=== PATIENT | female | born 1960 | race African-American/Black ===

== ENCOUNTER → 2016-09-14 | Outpatient (CLI) | payer MEDICARE, OTHER ==
[~2016-09-14] MED LIST: ZOLPIDEM 5 MG TABLET. PO ONE
--- NOTE | 2016-09-15 10:04 | SLEEP ---
DATE OF STUDY: 09/14/2016 SLEEP STUDY ATTENDING PHYSICIAN: Dr. Shonda Tse. The patient is 56 years old who weighs 220 pounds with a BMI of 42. The patient has moderate subjective hypersomnia with an Zenda score of 15. Sleep study was performed to rule out MARIA DOLORES. During the night study, the patient spent 413 minutes in bed and slept for 311 minutes with a sleep efficiency of 75%. Sleep latency was 88 minutes with a REM latency of 219 minutes. Overall, sleep architecture showed normal stage I sleep, increased stage II sleep, normal N3 and reduced REM sleep. During the night study, the patient had 8 obstructive apneas, no mixed or central apneas and there were 23 hypopneas. The patient's apnea hypopnea index was 6 per hour, supine index 7 per hour and a REM index of 6 per hour. The chemistry quality control technician did note the thoracic channel dampening throughout the night. Review of nocturnal oximetry study revealed a mean oxygen saturation 96% with the lowest of 84%. 12% of time oxygen saturation remained between 80% and 89% and was predominantly during REM sleep. EKG monitoring revealed normal sinus rhythm, average heart rate was 54 beats per minute. No sustained arrhythmias were observed. PLMS were seen at index of 1 per hour and none caused EEG arousals. Due to low AHI, the patient did not meet the split night criteria for CPAP initiation. IMPRESSION: 1. Mild sleep apnea-hypopnea syndrome with an AHI of 6 per hour. 2. Nocturnal hypoxia secondary to obstructive sleep apnea. 3. No clinically significant PLMS. RECOMMENDATIONS: 1. The patient is clinically symptomatic with an Zenda score of 15. I would recommend treating the patient's sleep apnea with either oral appliance or a trial of CPAP titration. 2. If the patient pursue with CPAP titration, then she should be followed up in 4-6 weeks to assess compliance with CPAP and to document clinical improvement. 3. Weight loss is strongly advised. 4. Avoid MEDICAL BILLING SUPERVISOR depressants. 5. Caution regarding driving until symptoms of sleep apnea have resolved with the above recommendations. VIDAL CHENG MD DR: MAGDI/sahra JOB#: [id number] / [id number] SHONDA Campbell MD
== END | disposition home or self-care (01) ==
LOC: SLPLAB 18:55
PROVIDERS: ATTEND Internal Medicine Cardiovascular Disease
DX: G47.33 Obstructive sleep apnea (adult) (pediatric) (principal)
CPT/HCPCS: 95810

== ENCOUNTER 2017-03-17 10:19 | Inpatient (IN) | payer MEDICARE ==
[~2017-03-17] VITALS: Ht 154.9 cm; Wt 98.7 kg
[~2017-03-17 10:19] MED LIST changes: +APIX5TAB PO; +ASPI-612 PO; +ATOR10TA60 PO; +CITA20TA5 PO; +CLON0.1T PO; +CLOP75TA PO; +FLUT16SP NS; +FURO40TA4 PO; +HYDR-2869 PO; +INSU100C SQ; +LISI40TA PO; +MAGN64TA6 PO; +METF-620 PO; +SPIR25TA3 PO; -ZOLPIDEM 5 MG TABLET. PO ONE
[2017-03-17 10:48] LABS: BASO # 0.1 x10^3/uL (0.0-0.2); BASO % 1 % (0-3); EOS % 1 % (0-3); HEMATOCRIT 32.1 % (36.0-47.0); HEMOGLOBIN 10.5 g/dL (12.0-15.5); LYMPH # 2.6 x10^3/uL (1.0-4.8); LYMPH % 26 % (24-48); MEAN CORPUSCULAR HEMOGLOBIN 27 pg (25-35); MEAN CORPUSCULAR HGB CONC 33 g/dL (31-37); MEAN CORPUSCULAR VOLUME 82 fL (79-100); MONO % 5 % (0-9); NEUT % 67 % (31-73); PLATELET COUNT 246 x10^3/uL (140-400); RED BLOOD COUNT 3.92 x10^6/uL (3.50-5.40); RED CELL DISTRIBUTION WIDTH 15.3 % (11.5-14.5)
--- NOTE | 2017-03-17 10:50 | EKG ---
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
[2017-03-17 10:56] LABS: BILIRUBIN,URINE NEGATIVE (NEG); GLUCOSE,URINE NEGATIVE (NEG); NITRITE,URINE NEGATIVE (NEG); PROTEIN,URINE NEGATIVE (NEG-TRACE); UROBILINOGEN,URINE 0.2 mg/dL (0.2 mg/dL)
[2017-03-17 10:58] LABS: CALCIUM 9.6 mg/dL (8.5-10.1); CREATININE 0.9 mg/dL (0.6-1.0); GFR 78.1; INR 1.2 (0.8-1.1); POTASSIUM 4.1 mmol/L (3.5-5.1); PROTHROMBIN TIME PATIENT 14.2 SEC (11.7-14.0)
[2017-03-17 11:07] LABS: ALBUMIN 3.7 g/dL (3.4-5.0); ALBUMIN/GLOBULIN RATIO 0.9 (1.0-1.7); MAGNESIUM 1.7 mg/dL (1.8-2.4); TOTAL BILIRUBIN 0.7 mg/dL (0.2-1.0); TOTAL PROTEIN 7.7 g/dL (6.4-8.2)
--- NOTE | 2017-03-17 11:09 | RAD ---
Examination: Single frontal view the chest. History: History of shortness of breath Comparison: None available Findings: The cardiomediastinal silhouette grossly appears unremarkable. Probable minimal prominent appearing bilateral interstitial lung markings. Impression: Probable minimal congestive changes.
[2017-03-17 11:13] LABS: BACTERIA,URINE 0 /HPF (0-FEW); RBC,URINE 0 /HPF (0-2); SQUAMOUS EPITHELIAL CELL,UR OCC /LPF; WBC,URINE 0 /HPF (0-4)
[2017-03-17 11:34] LABS: OBC FLU VALID
--- NOTE | 2017-03-17 11:45 | RAD ---
Examination: CT head without contrast History: Headache, hypertension. Comparison: None. .. Findings: The ventricles and sulci are normal for the patient's age. No mass-effect, intracranial mass, midline shift, hemorrhage or obvious acute infarction is identified. Basilar cisterns are patent. Bone windows demonstrate no significant calvarial abnormality. The visualized paranasal sinuses appear clear. There is a tiny bone density identified in the inner table of the left frontal skull bone measuring 2.5 mm could be tiny calcification or a small meningioma Impression: 1. No acute intracranial process. 2. There is a tiny bone density identified in the inner table of the left frontal skull bone measuring 2.5 mm could be tiny calcification or a small meningioma PQRS Compliance Statement: One or more of the following individualized dose reduction techniques were utilized for this examination: 1. Automated exposure control 2. Adjustment of the mA and/or kV according to patient size 3. Use of iterative reconstruction technique faint
[2017-03-17 12:45] VITALS: BP 197/78
--- NOTE | 2017-03-17 12:47 | PHYS DOC ---
Past Medical History Past Medical History: CHF, Diabetes-Type II, Hypertension Past Surgical History: Cholecystectomy, Hysterectomy, Tonsillectomy, Other Additional Past Surgical Histo: L breast lumpectomy x 2 Alcohol Use: Occasionally Drug Use: None Adult General Chief Complaint Chief Complaint: sob, light-headed, htn, intermittent REGAN HPI HPI Patient is a 56 year old female who presents with chest pain, shortness of breath and intermittent headaches. Patient states that shortness of breath started after she was cleaning her of them with an ammonia diamond cleaner on Wednesday. It is been persistent and worsening in nature, mild cough, increased orthopnea and exertional dyspnea. Patient does have a history of CHF, states that her edema in her lower extremities is improved from today. She's been taking all her medications as directed, noting that her blood pressure at significantly been increasing. She contacted her cardiology office and they increased her hydralazine from 25-50 per dose, she has been taking this increased dose. She developed a headache yesterday there is been persistent, denies any slurred speech, no focal weakness. Patient reports she took her blood pressure medication today, it is significantly elevated upon arrival. Pt plans to have thyroid study performed, came to "take the pill" and noted to have accelerated htn, instructed to come to ED Review of Systems Review of Systems Constitutional: Denies fever or chills [] Eyes: Denies change in visual acuity, redness, or eye pain [] HENT: Denies nasal congestion or sore throat [] Respiratory: Per history of present illness Cardiovascular: No additional information not addressed in HPI [] GI: Denies abdominal pain, nausea, vomiting, bloody stools or diarrhea [] : Denies dysuria or hematuria [] Musculoskeletal: Denies back pain or joint pain [] Integument: Denies rash or skin lesions [] Neurologic:reports headache, denies focal weakness or sensory changes [] Allergies Allergies Allergies Coded Allergies Type Severity Reaction Last Updated Verified No Known Drug Allergies 03/17/17 No Physical Exam Physical Exam Constitutional: Well developed, well nourished, no acute distress, non-toxic appearance. [] HENT: Normocephalic, atraumatic, bilateral external ears normal, oropharynx moist, no oral exudates, nose normal. [] Eyes: PERRLA, EOMI, conjunctiva normal, no discharge. [] Neck: Normal range of motion, no tenderness, supple, no stridor. [] Cardiovascular:Heart rate regular rhythm Lungs & Thorax: Bilateral breath sounds , poor to moderate air movement, faint lower lobe crackles Abdomen: Bowel sounds normal, soft, no tenderness, no masses, no pulsatile masses. [] Skin: Warm, dry, no erythema, no rash. [] Back: No tenderness, no CVA tenderness. [] Extremities: No tenderness, no cyanosis, no clubbing, ROM intact,trace bilateral LE edema Neurologic: Alert and oriented X 3, normal motor function, normal sensory function, no focal deficits noted. [] Psychologic: Affect normal, judgement normal, mood normal. [] Current Patient Data Vital Signs Vital Signs Date Time Temp Pulse Resp B/P (MAP) Pulse Ox O2 Delivery O2 Flow Rate FiO2 03/17/17 11:30 54 28 97 03/17/17 10:25 97.9 229/96 (140) Room Air 97.9 Lab Values Laboratory Tests Test 03/17/17 10:40 03/17/17 10:45 03/17/17 11:10 White Blood Count 10.0 x10^3/uL (4.0-11.0) Red Blood Count 3.92 x10^6/uL (3.50-5.40) Hemoglobin 10.5 g/dL (12.0-15.5) L Hematocrit 32.1 % (36.0-47.0) L Mean Corpuscular Volume 82 fL (79-100) Mean Corpuscular Hemoglobin 27 pg (25-35) Mean Corpuscular Hemoglobin Concent 33 g/dL (31-37) Red Cell Distribution Width 15.3 % (11.5-14.5) H Platelet Count 246 x10^3/uL (140-400) Neutrophils (%) (Auto) 67 % (31-73) Lymphocytes (%) (Auto) 26 % (24-48) Monocytes (%) (Auto) 5 % (0-9) Eosinophils (%) (Auto) 1 % (0-3) Basophils (%) (Auto) 1 % (0-3) Neutrophils # (Auto) 6.7 x10^3uL (1.8-7.7) Lymphocytes # (Auto) 2.6 x10^3/uL (1.0-4.8) Monocytes # (Auto) 0.5 x10^3/uL (0.0-1.1) Eosinophils # (Auto) 0.1 x10^3/uL (0.0-0.7) Basophils # (Auto) 0.1 x10^3/uL (0.0-0.2) Prothrombin Time 14.2 SEC (11.7-14.0) H Prothrombin Time INR 1.2 (0.8-1.1) H Sodium Level 139 mmol/L (136-145) Potassium Level 4.1 mmol/L (3.5-5.1) Chloride Level 101 mmol/L (98-107) Carbon Dioxide Level 27 mmol/L (21-32) Anion Gap 11 (6-14) Blood Urea Nitrogen 12 mg/dL (7-20) Creatinine 0.9 mg/dL (0.6-1.0) Estimated GFR (Cockcroft-Gault) 78.1 BUN/Creatinine Ratio 13 (6-20) Glucose Level 148 mg/dL (70-99) H Calcium Level 9.6 mg/dL (8.5-10.1) Magnesium Level 1.7 mg/dL (1.8-2.4) L Total Bilirubin 0.7 mg/dL (0.2-1.0) Aspartate Amino Transferase (AST) 22 U/L (15-37) Alanine Aminotransferase (ALT) 33 U/L (14-59) Alkaline Phosphatase 98 U/L (46-116) Troponin I Quantitative 0.027 ng/mL (0.000-0.055) NN-Sgd-A-Type Natriuretic Peptide 2015 pg/mL (0-124) H Total Protein 7.7 g/dL (6.4-8.2) Albumin 3.7 g/dL (3.4-5.0) Albumin/Globulin Ratio 0.9 (1.0-1.7) L Urine Collection Type Unknown Urine Color Yellow Urine Clarity Clear Urine pH 6.0 Urine Specific [place] <=1.005 Urine Protein Negative mg/dL (NEG-TRACE) Urine Glucose (UA) Negative mg/dL (NEG) Urine Ketones (Stick) Negative mg/dL (NEG) Urine Blood Negative (NEG) Urine Nitrite Negative (NEG) Urine Bilirubin Negative (NEG) Urine Urobilinogen Dipstick 0.2 mg/dL (0.2 mg/dL) Urine Leukocyte Esterase Negative (NEG) Urine RBC 0 /HPF (0-2) Urine WBC 0 /HPF (0-4) Urine Squamous Epithelial Cells Occ /LPF Urine Bacteria 0 /HPF (0-FEW) Urine Opiates Screen Neg (NEG) Urine Methadone Screen Neg (NEG) Urine Barbiturates Neg (NEG) Urine Phencyclidine Screen Neg (NEG) Urine Amphetamine/Methamphetamine Neg (NEG) Urine Benzodiazepines Screen Neg (NEG) Urine Cocaine Screen Neg (NEG) Urine Cannabinoids Screen Neg (NEG) Urine Ethyl Alcohol Neg (NEG) Influenza Type A Antigen Negative (NEGATIVE) Influenza Type B Antigen Negative (NEGATIVE) Laboratory Tests 03/17/17 10:40 Laboratory Tests 03/17/17 10:40 EKG EKG 1031: 55 bpm, appears sinus, normal axis, QTC of 460, no appreciable ST elevation or depression, nonischemic T waves, wandering baseline does make it challenging to interpret, interpreted by me[] Radiology/Procedures Radiology/Procedures CXR: Impression: Probable minimal congestive changes. CT head: Impression: 1. No acute intracranial process. 2. There is a tiny bone density identified in the inner table of the left frontal skull bone measuring 2.5 mm could be tiny calcification or a small meningioma Course & Med Decision Making Course & Med Decision Making Pertinent Labs and Imaging studies reviewed. (See chart for details) Pt with accelerated htn, sob. Pt given IV lasix, contacted cardiology, recommends admission. Dr. Gonzalez accepted, pt agreeable. Dragon Disclaimer Dragon Disclaimer This electronic medical record was generated, in whole or in part, using a voice recognition dictation system. Departure Departure Impression: Primary Impression: Accelerated hypertension Additional Impression: Acute on chronic systolic (congestive) heart failure Disposition: 09 ADMITTED INPATIENT Admitting Physician: Other Condition: STABLE Referrals: SHONDA PHOENIX MD (PCP) Problem Qualifiers DOMINGUEZ CRISTOBAL MD Mar 17, 2017 12:47
[2017-03-17] MEDS ORDERED: FUROSEMIDE 40 MG/4 ML VIAL. IVP ONE (13:15)
--- NOTE | 2017-03-17 13:25 | PDOC1 ---
History and Physical Date of Admission Date of Admission 03/17/17 Identification/Chief Complaint Chief Complaint chest pain Problems: Source Source: Patient History of Present Illness History of Present Illness 56 year old AAF came in complaining of headache and chest pain since Wednesday. Patient was cleaning her kitchen when she felt dizzy and having headaches she checked her blood pressure and found to have systolic blood pressure in the 200s. Patient increased her dose of hydralazine and was still taking all her medications. Patient came to [facility] to do a Thyroid uptake scan and she didn 't feel good her blood pressure was still elevated and was told to come to the ER. Patient's blood pressure was still in the systolic 200s and she was given a dose of Lasix in the ER. Patient denies any fever, chills, nausea, vomiting. Past Medical History Cardiovascular: CAD, HTN Endocrine: Diabetes Past Surgical History Past Surgical History cardiac catherization Social History Smoke: No ALCOHOL: none Current Problem List Problem List Problems Medical Problems: (1) Accelerated hypertension Status: Acute Current Medications Current Medications Current Medications Medications (Trade) Dose Ordered Sig/Jose Elias Start Time Stop Time Status Last Admin Dose Admin Apixaban (Eliquis) 5 mg BID 03/17/17 13:30 Aspirin (Ecotrin) 81 mg DAILY 03/17/17 13:30 Atorvastatin Calcium (Lipitor) 10 mg QHS 03/17/17 21:00 Citalopram Hydrobromide (CeleXA) 20 mg DAILY 03/17/17 13:30 Clonidine HCl (Catapres) 0.1 mg QHS 03/17/17 21:00 Clopidogrel Bisulfate (Plavix) 75 mg DAILY 03/17/17 13:30 Fluticasone Propionate (Flonase) 2 spray DAILY 03/17/17 13:30 Furosemide (Lasix) 40 mg DAILY 03/18/17 09:00 Hydralazine HCl (Apresoline) 50 mg BID 03/17/17 13:30 Lisinopril (Prinivil) 40 mg BID 03/17/17 13:30 Metformin HCl (Glucophage) 1,000 mg [id number] 03/17/17 13:30 Spironolactone (Aldactone) 25 mg DAILY 03/17/17 13:30 Allergies Allergies Allergies Coded Allergies Type Severity Reaction Last Updated Verified No Known Drug Allergies 03/17/17 No ROS Review of System CONSTITUTIONAL: No fever or chills EYES: No recent changes SKIN: No rash or itching CARDIOVASCULAR: +chest pain RESPIRATORY: No SOB or cough GASTROINTESTINAL: No nausea, vomiting or abdominal pain NEUROLOGICAL: No headaches or weakness ENDOCRINE: No cold or heat intolerance GENITOURINARY: No urgency or frequency of urination MUSCULOSKELETAL: No back pain or joint pain LYMPHATICS: No enlarged lymph nodes PSYCHIATRIC: No anxiety or depression Physical Exam Physical Exam GEN.: No apparent distress. Alert and oriented. HEENT: Head is normocephalic, atraumatic NECK: Supple. LUNGS: Clear to auscultation. HEART: RRR, S1, S2 present. Peripheral pulses intact ABDOMEN: Soft, nontender. Positive bowel sounds. EXTREMITIES: Without any cyanosis. NEUROLOGIC: Normal speech, normal tone PSYCHIATRIC: Normal affect, normal mood. SKIN: No ulcerations Vitals Vitals Vital Signs Date Time Temp Pulse Resp B/P (MAP) Pulse Ox O2 Delivery O2 Flow Rate FiO2 03/17/17 12:20 54 28 97 03/17/17 10:25 97.9 229/96 (140) Room Air 97.9 Labs Labs Laboratory Tests Test 03/17/17 10:40 03/17/17 10:45 03/17/17 11:10 03/17/17 12:56 White Blood Count 10.0 x10^3/uL (4.0-11.0) Red Blood Count 3.92 x10^6/uL (3.50-5.40) Hemoglobin 10.5 g/dL (12.0-15.5) Hematocrit 32.1 % (36.0-47.0) Mean Corpuscular Volume 82 fL (79-100) Mean Corpuscular Hemoglobin 27 pg (25-35) Mean Corpuscular Hemoglobin Concent 33 g/dL (31-37) Red Cell Distribution Width 15.3 % (11.5-14.5) Platelet Count 246 x10^3/uL (140-400) Neutrophils (%) (Auto) 67 % (31-73) Lymphocytes (%) (Auto) 26 % (24-48) Monocytes (%) (Auto) 5 % (0-9) Eosinophils (%) (Auto) 1 % (0-3) Basophils (%) (Auto) 1 % (0-3) Neutrophils # (Auto) 6.7 x10^3uL (1.8-7.7) Lymphocytes # (Auto) 2.6 x10^3/uL (1.0-4.8) Monocytes # (Auto) 0.5 x10^3/uL (0.0-1.1) Eosinophils # (Auto) 0.1 x10^3/uL (0.0-0.7) Basophils # (Auto) 0.1 x10^3/uL (0.0-0.2) Prothrombin Time 14.2 SEC (11.7-14.0) Prothromb Time International Ratio 1.2 (0.8-1.1) Sodium Level 139 mmol/L (136-145) Potassium Level 4.1 mmol/L (3.5-5.1) Chloride Level 101 mmol/L (98-107) Carbon Dioxide Level 27 mmol/L (21-32) Anion Gap 11 (6-14) Blood Urea Nitrogen 12 mg/dL (7-20) Creatinine 0.9 mg/dL (0.6-1.0) Estimated GFR (Cockcroft-Gault) 78.1 BUN/Creatinine Ratio 13 (6-20) Glucose Level 148 mg/dL (70-99) Calcium Level 9.6 mg/dL (8.5-10.1) Magnesium Level 1.7 mg/dL (1.8-2.4) Total Bilirubin 0.7 mg/dL (0.2-1.0) Aspartate Amino Transf (AST/SGOT) 22 U/L (15-37) Alanine Aminotransferase (ALT/SGPT) 33 U/L (14-59) Alkaline Phosphatase 98 U/L (46-116) Troponin I Quantitative 0.027 ng/mL (0.000-0.055) BC-Qyx-Q-Type Natriuretic Peptide 2015 pg/mL (0-124) Total Protein 7.7 g/dL (6.4-8.2) Albumin 3.7 g/dL (3.4-5.0) Albumin/Globulin Ratio 0.9 (1.0-1.7) Urine Collection Type Unknown Urine Color Yellow Urine Clarity Clear Urine pH 6.0 Urine Specific [place] <=1.005 Urine Protein Negative mg/dL (NEG-TRACE) Urine Glucose (UA) Negative mg/dL (NEG) Urine Ketones (Stick) Negative mg/dL (NEG) Urine Blood Negative (NEG) Urine Nitrite Negative (NEG) Urine Bilirubin Negative (NEG) Urine Urobilinogen Dipstick 0.2 mg/dL (0.2 mg/dL) Urine Leukocyte Esterase Negative (NEG) Urine RBC 0 /HPF (0-2) Urine WBC 0 /HPF (0-4) Urine Squamous Epithelial Cells Occ /LPF Urine Bacteria 0 /HPF (0-FEW) Influenza Type A Antigen Negative (NEGATIVE) Influenza Type B Antigen Negative (NEGATIVE) Glucose (Fingerstick) 143 mg/dL (70-99) Laboratory Tests Test 03/17/17 10:40 03/17/17 10:45 03/17/17 11:10 03/17/17 12:56 White Blood Count 10.0 x10^3/uL (4.0-11.0) Red Blood Count 3.92 x10^6/uL (3.50-5.40) Hemoglobin 10.5 g/dL (12.0-15.5) Hematocrit 32.1 % (36.0-47.0) Mean Corpuscular Volume 82 fL (79-100) Mean Corpuscular Hemoglobin 27 pg (25-35) Mean Corpuscular Hemoglobin Concent 33 g/dL (31-37) Red Cell Distribution Width 15.3 % (11.5-14.5) Platelet Count 246 x10^3/uL (140-400) Neutrophils (%) (Auto) 67 % (31-73) Lymphocytes (%) (Auto) 26 % (24-48) Monocytes (%) (Auto) 5 % (0-9) Eosinophils (%) (Auto) 1 % (0-3) Basophils (%) (Auto) 1 % (0-3) Neutrophils # (Auto) 6.7 x10^3uL (1.8-7.7) Lymphocytes # (Auto) 2.6 x10^3/uL (1.0-4.8) Monocytes # (Auto) 0.5 x10^3/uL (0.0-1.1) Eosinophils # (Auto) 0.1 x10^3/uL (0.0-0.7) Basophils # (Auto) 0.1 x10^3/uL (0.0-0.2) Prothrombin Time 14.2 SEC (11.7-14.0) Prothromb Time International Ratio 1.2 (0.8-1.1) Sodium Level 139 mmol/L (136-145) Potassium Level 4.1 mmol/L (3.5-5.1) Chloride Level 101 mmol/L (98-107) Carbon Dioxide Level 27 mmol/L (21-32) Anion Gap 11 (6-14) Blood Urea Nitrogen 12 mg/dL (7-20) Creatinine 0.9 mg/dL (0.6-1.0) Estimated GFR (Cockcroft-Gault) 78.1 BUN/Creatinine Ratio 13 (6-20) Glucose Level 148 mg/dL (70-99) Calcium Level 9.6 mg/dL (8.5-10.1) Magnesium Level 1.7 mg/dL (1.8-2.4) Total Bilirubin 0.7 mg/dL (0.2-1.0) Aspartate Amino Transf (AST/SGOT) 22 U/L (15-37) Alanine Aminotransferase (ALT/SGPT) 33 U/L (14-59) Alkaline Phosphatase 98 U/L (46-116) Troponin I Quantitative 0.027 ng/mL (0.000-0.055) CY-Yyr-N-Type Natriuretic Peptide 2015 pg/mL (0-124) Total Protein 7.7 g/dL (6.4-8.2) Albumin 3.7 g/dL (3.4-5.0) Albumin/Globulin Ratio 0.9 (1.0-1.7) Urine Collection Type Unknown Urine Color Yellow Urine Clarity Clear Urine pH 6.0 Urine Specific [place] <=1.005 Urine Protein Negative mg/dL (NEG-TRACE) Urine Glucose (UA) Negative mg/dL (NEG) Urine Ketones (Stick) Negative mg/dL (NEG) Urine Blood Negative (NEG) Urine Nitrite Negative (NEG) Urine Bilirubin Negative (NEG) Urine Urobilinogen Dipstick 0.2 mg/dL (0.2 mg/dL) Urine Leukocyte Esterase Negative (NEG) Urine RBC 0 /HPF (0-2) Urine WBC 0 /HPF (0-4) Urine Squamous Epithelial Cells Occ /LPF Urine Bacteria 0 /HPF (0-FEW) Influenza Type A Antigen Negative (NEGATIVE) Influenza Type B Antigen Negative (NEGATIVE) Glucose (Fingerstick) 143 mg/dL (70-99) Images Images CT heat w/o contrast Findings: The ventricles and sulci are normal for the patient's age. No mass-effect, intracranial mass, midline shift, hemorrhage or obvious acute infarction is identified. Basilar cisterns are patent. Bone windows demonstrate no significant calvarial abnormality. The visualized paranasal sinuses appear clear. There is a tiny bone density identified in the inner table of the left frontal skull bone measuring 2.5 mm could be tiny calcification or a small meningioma Impression: 1. No acute intracranial process. 2. There is a tiny bone density identified in the inner table of the left frontal skull bone measuring 2.5 mm could be tiny calcification or a small meningioma VTE Prophylaxis Ordered VTE Prophylaxis Devices: Yes VTE Pharmacological Prophylaxi: Yes Assessment/Plan Assessment/Plan ~ Hypertensive Urgency ~ CAD ~ DM II ~ Hx of Right SFA dissection/stenosis ~ PVD ~ HLD- statin Plan: Continue with home BP medications, cardiology consulted, will consult renal for other BP recommendations patient has been compliant with her medications Continue with Plavix, asa, eliquis for now accuchecks, metformin STELLA PARMAR MD Mar 17, 2017 13:25
[2017-03-17] MEDS: CITALOPRAM 20 MG TABLET. PO SCH (13:30)
[2017-03-17] MEDS: CLOPIDOGREL BISULFATE 75 MG TABLET PO SCH (13:30)
[2017-03-17] MEDS: SPIRONOLACTONE 25 MG TABLET PO SCH (13:30)
[2017-03-17] MEDS: APIXABAN 5 MG TABLET. PO SCH ×2 (13:30→20:29)
[2017-03-17] MEDS: LISINOPRIL 40 MG TABLET. PO SCH ×2 (13:30→20:28)
[2017-03-17] MEDS: ASPIRIN ENTERIC COATED 81 MG TABLET.DR. PO SCH (13:30)
--- NOTE | 2017-03-17 13:57 | PDOC2 ---
JENA PERALES HAT BRAIDER 03/17/17 1357: CARDIAC CONSULT DATE OF CONSULT Date of Consult DATE: 03/17/17 TIME: 13:50 REASON FOR CONSULT Reason for Consult: CHF Hypertension REFERRING PHYSICIAN Referring Physician: Dr. Ley SOURCE Source: Chart review, Patient HISTORY OF PRESENT ILLNESS HISTORY OF PRESENT ILLNESS This is a 56 female who presented with complaints of shortness of breath and hypertension. 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 Began feeling dizzy and feeling slightly short of breath. Developed REGAN. Wasn't feeling well Wednesday. Noted BP to be significantly elevated with SBP >200. BP continued to be significantly elevated early this week. Call PCP, who recommended that she increase her hydralazine to TID. BP continue to be significantly elevated. Was at [place] today for a thyroid uptake scan. BP noted to be elevated and she was referred to the ED. SBP> 200 upon arrival- no antiHTN therapy administered. CXR noted with minimal congestive changes- IV lasix administered. BP returned to normal range despite no additional hypertension therapy. Presently 134/60. 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 PHYSICAL EXAM General: Alert, Oriented X3, Cooperative, No acute distress HEENT: Atraumatic, Mucous membr. moist/pink Lungs: Clear to auscultation, Other (faint bibasilar crackles) Heart: Regular rate, Normal S1, Normal S2, No murmurs Abdomen: Soft, No tenderness Extremities: No edema, Normal pulses Skin: No significant lesion Neuro: Normal speech, Sensation intact Psych/Mental Status: Mental status NL, Mood NL MUSCULOSKELETAL: No joint tenderness VITALS VITALS Vital Signs Date Time Temp Pulse Resp B/P (MAP) Pulse Ox O2 Delivery O2 Flow Rate FiO2 03/17/17 12:20 54 28 97 03/17/17 10:25 97.9 229/96 (140) Room Air 97.9 LABS Lab: Laboratory Tests Test 03/17/17 10:40 03/17/17 10:45 03/17/17 11:10 12/6/17 12:56 White Blood Count 10.0 x10^3/uL (4.0-11.0) Red Blood Count 3.92 x10^6/uL (3.50-5.40) Hemoglobin 10.5 g/dL (12.0-15.5) Hematocrit 32.1 % (36.0-47.0) Mean Corpuscular Volume 82 fL (79-100) Mean Corpuscular Hemoglobin 27 pg (25-35) Mean Corpuscular Hemoglobin Concent 33 g/dL (31-37) Red Cell Distribution Width 15.3 % (11.5-14.5) Platelet Count 246 x10^3/uL (140-400) Neutrophils (%) (Auto) 67 % (31-73) Lymphocytes (%) (Auto) 26 % (24-48) Monocytes (%) (Auto) 5 % (0-9) Eosinophils (%) (Auto) 1 % (0-3) Basophils (%) (Auto) 1 % (0-3) Neutrophils # (Auto) 6.7 x10^3uL (1.8-7.7) Lymphocytes # (Auto) 2.6 x10^3/uL (1.0-4.8) Monocytes # (Auto) 0.5 x10^3/uL (0.0-1.1) Eosinophils # (Auto) 0.1 x10^3/uL (0.0-0.7) Basophils # (Auto) 0.1 x10^3/uL (0.0-0.2) Prothrombin Time 14.2 SEC (11.7-14.0) Prothromb Time International Ratio 1.2 (0.8-1.1) Sodium Level 139 mmol/L (136-145) Potassium Level 4.1 mmol/L (3.5-5.1) Chloride Level 101 mmol/L (98-107) Carbon Dioxide Level 27 mmol/L (21-32) Anion Gap 11 (6-14) Blood Urea Nitrogen 12 mg/dL (7-20) Creatinine 0.9 mg/dL (0.6-1.0) Estimated GFR (Cockcroft-Gault) 78.1 BUN/Creatinine Ratio 13 (6-20) Glucose Level 148 mg/dL (70-99) Calcium Level 9.6 mg/dL (8.5-10.1) Magnesium Level 1.7 mg/dL (1.8-2.4) Total Bilirubin 0.7 mg/dL (0.2-1.0) Aspartate Amino Transf (AST/SGOT) 22 U/L (15-37) Alanine Aminotransferase (ALT/SGPT) 33 U/L (14-59) Alkaline Phosphatase 98 U/L (46-116) Troponin I Quantitative 0.027 ng/mL (0.000-0.055) FV-Nef-A-Type Natriuretic Peptide 2015 pg/mL (0-124) Total Protein 7.7 g/dL (6.4-8.2) Albumin 3.7 g/dL (3.4-5.0) Albumin/Globulin Ratio 0.9 (1.0-1.7) Urine Collection Type Unknown Urine Color Yellow Urine Clarity Clear Urine pH 6.0 Urine Specific [place] <=1.005 Urine Protein Negative mg/dL (NEG-TRACE) Urine Glucose (UA) Negative mg/dL (NEG) Urine Ketones (Stick) Negative mg/dL (NEG) Urine Blood Negative (NEG) Urine Nitrite Negative (NEG) Urine Bilirubin Negative (NEG) Urine Urobilinogen Dipstick 0.2 mg/dL (0.2 mg/dL) Urine Leukocyte Esterase Negative (NEG) Urine RBC 0 /HPF (0-2) Urine WBC 0 /HPF (0-4) Urine Squamous Epithelial Cells Occ /LPF Urine Bacteria 0 /HPF (0-FEW) Influenza Type A Antigen Negative (NEGATIVE) Influenza Type B Antigen Negative (NEGATIVE) Glucose (Fingerstick) 143 mg/dL (70-99) ECHOCARDIOGRAM ECHOCARDIOGRAM <Conclusion> The left ventricle is normal size. Left ventricle systolic function is normal. The Ejection Fraction is 50-55%. There is mild concentric left ventricular hypertrophy. There is no significant aortic valvular stenosis. Doppler and Color Flow revealed no significant aortic regurgitation. Doppler and Color Flow revealed trace mitral regurgitation. Doppler and Color Flow revealed mild tricuspid regurgitation. The PA pressure was estimated at 33 mmHg. DATE: 07/08/16 1440 STRESS TEST STRESS TEST Conclusion 1. Non-diagnostic stress EKG. 2. Large anterior/lateral perfusion defect suggestive of prior infarct. May be due to artifact related to LVH. 3. Normal wall motion. EF > 60% 4. Moderate risk study Recommendations Given degree of abnormality, along with mild transient ischemia dilation, would consider cardiac catheterization. DATE: 01/27/17 1711 HEART CATH HEART CATH Conclusion 1. No significant coronary artery disease 2. Normal left ventricle systolic function with ejection fraction estimated at 75-80%. Recommendations Cardiac Risk Reduction Program DATE: 02/01/17 1551 ASSESSMENT/PLAN ASSESSMENT/PLAN 1. Malignant hypertension 2. Mild acute diastolic HF; LVEF 50-55% 3. Dyslipidemia 4. Diabetes 5. H/o RCFA dissection treated with MEASUREMENT ADVISOR and anticoagulation Recommendations Resume home antiHTN therapy. Increase hydralazine to TID Monitor to assess need for therapy titration Assess need for further diuresis in am Continue DAPT with Eliquis and Plavix. Vascular surgery appointment next week. Supportive care. Problems: ROSEMARY PIZARRO MD 03/17/17 1825: CARDIAC CONSULT ALLERGIES ALLERGIES: Coded Allergies: No Known Drug Allergies (Unverified , 03/17/17) ASSESSMENT/PLAN ASSESSMENT/PLAN Pt. seen and examined. Appreciate nephrology input. Supportive care. Would like to avoid repeat cath given her R groin dissection from her previous cath. Will follow along. reviewed prior records, did not find evidence of urine VMA's etc. Will consider 24 hour urine collection and rule out secondary causes. Thanks Problems: JENA PERALES APRN Mar 17, 2017 13:57 ROSEMARY PIZARRO MD Mar 17, 2017 18:25
[2017-03-17] MEDS ORDERED: MAGNESIUM SULFATE 2GM 50 ML IV PRN (14:30)
--- NOTE | 2017-03-17 14:39 | PDOC2 ---
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) Endocrine: Diabetes Past Surgical History Past Surgical History: Cholecystectomy, Hysterectomy Family History Family History: Diabetes, Hypertension Social History No ALCOHOL: none Lives: Alone Current Problem List Problem List Problems Medical Problems: (1) Accelerated hypertension Status: Acute Current Medications Current Medications Current Medications Furosemide (Lasix) 40 mg 1X ONCE IVP Last administered on 03/17/17t 14:10; Start 03/17/17 at 13:15; Stop 03/17/17 at 13:16; Status DC Apixaban (Eliquis) 5 mg BID PO ; Start 03/17/17 at 13:30 Aspirin (Ecotrin) 81 mg DAILY PO ; Start 03/17/17 at 13:30 Atorvastatin Calcium (Lipitor) 10 mg QHS PO ; Start 03/17/17 at 21:00 Citalopram Hydrobromide (CeleXA) 20 mg DAILY PO ; Start 03/17/17 at 13:30 Clonidine HCl (Catapres) 0.1 mg QHS PO ; Start 03/17/17 at 21:00 Clopidogrel Bisulfate (Plavix) 75 mg DAILY PO ; Start 03/17/17 at 13:30 Fluticasone Propionate (Flonase) 2 spray DAILY NS ; Start 03/17/17 at 13:30 Furosemide (Lasix) 40 mg DAILY PO ; Start 03/18/17 at 09:00 Hydralazine HCl (Apresoline) 50 mg BID PO ; Start 03/17/17 at 13:30 Lisinopril (Prinivil) 40 mg BID PO ; Start 03/17/17 at 13:30 Metformin HCl (Glucophage) 1,000 mg DAILYWBKFT PO ; Start 03/17/17 at 13:30 Spironolactone (Aldactone) 25 mg DAILY PO ; Start 03/17/17 at 13:30 Info (Anti-Coagulation Monitoring By Pharmacy) 1 each PRN DAILY PRN MC SEE COMMENTS; Start 03/17/17 at 13:15 Active Scripts Active Eliquis (Apixaban) 5 Mg Tablet 5 Mg PO BID 30 Days Aspirin Ec (Aspirin) 81 Mg Tablet.dr 1 Tab PO DAILY Clopidogrel (Clopidogrel Bisulfate) 75 Mg Tablet 1 Tab PO DAILY Reported Humalog (Insulin Lispro) 100 Unit/1 Ml Cartridge 100 Unit SQ Clonidine Hcl 0.1 Mg Tablet 1 Tab PO QHS 2 at hs. 1 at am Spironolactone 25 Mg Tablet 1 Tab PO DAILY Fluticasone Propionate Nasal [place] (Fluticasone Propionate) 16 Gm [place].susp 2 [place] NS DAILY Mag64 (Magnesium Chloride) 64 Mg Tablet.er 64 Mg PO Lisinopril 40 Mg Tablet 1 Tab PO BID Metformin Hcl 1,000 Mg Tablet 1,000 Mg PO DAILYWBKFT Atorvastatin Calcium 10 Mg Tablet 1 Tab PO DAILY Furosemide 40 Mg Tablet 1 Tab PO DAILY Citalopram Hbr (Citalopram Hydrobromide) 20 Mg Tablet 1 Tab PO DAILY Hydralazine Hcl 50 Mg Tablet 1 Tab PO BID Allergies Allergies: Coded Allergies: No Known Drug Allergies (Unverified , 03/17/17) ROS Review of System GEN: no Fevers no Chills EYES: ? Visual Complaints ENT: no EN Drainage no Hearing deficiets CVS: no Orthopnea no CP RESP: + SOB no MENDES GI: no Nausea no Vomiting : no Dysuria no Urgency HEME: no easy bruising no Palp Ly Nodes NEURO no Focal Weakness no Sz + REGAN with ^ed BP PSYCH: no Suicidal Ideation no Depression SKIN: no Rashes ENDO: no Polyuria or Polydipsia no Hot/Cold Intolerance MU SK: min Arthraigia no Myalgia Physical Exam Physical Exam General Appearance: Awake Alert Oriented x 3 In no Distress Eyes: VIsion Unchanged Conjunctiva Normal EN: No EN Drainage Mucous Memb. moist Neck: no JVD no JVP Supple no Thyromegaly - short thick neck CVS: S1 S2 ? Murmur No Gallop No Rub no Edema Resp: no Rales no Rhonchi no Acc. Muscle use GI: BAS +ve NO Bruit Non Tender Non Distended - no Burits, Obese abd : no CVA tenderness; no Suprapubic Tenderness SKIN: no Rashes Breast Exam deferred Mu.Sk: Adequate ROM no Muscle Atrophy Heme: Unable to palpate Obvious LAD no Splenomegaly NEURO: Good Strength and Tone Cranial Nerves II - XII grossly intact Psych: not Depressed no Active hallucination Vital Signs Vital Signs Date Time Temp Pulse Resp B/P (MAP) Pulse Ox O2 Delivery O2 Flow Rate FiO2 03/17/17 13:30 80 134/60 03/17/17 12:20 28 97 03/17/17 10:25 97.9 Room Air 97.9 Assessment & Plan Malignant HTN - sudden accel with Subj SOB - unclear etio. Check CTA for TE; Duplex done previously was -ve as reported. Dr Calles reports VMAs etch checked int he past and are -ve Labs Labs Laboratory Tests Test 03/17/17 10:40 03/17/17 10:45 03/17/17 11:10 03/17/17 12:56 White Blood Count 10.0 x10^3/uL (4.0-11.0) Red Blood Count 3.92 x10^6/uL (3.50-5.40) Hemoglobin 10.5 g/dL (12.0-15.5) Hematocrit 32.1 % (36.0-47.0) Mean Corpuscular Volume 82 fL (79-100) Mean Corpuscular Hemoglobin 27 pg (25-35) Mean Corpuscular Hemoglobin Concent 33 g/dL (31-37) Red Cell Distribution Width 15.3 % (11.5-14.5) Platelet Count 246 x10^3/uL (140-400) Neutrophils (%) (Auto) 67 % (31-73) Lymphocytes (%) (Auto) 26 % (24-48) Monocytes (%) (Auto) 5 % (0-9) Eosinophils (%) (Auto) 1 % (0-3) Basophils (%) (Auto) 1 % (0-3) Neutrophils # (Auto) 6.7 x10^3uL (1.8-7.7) Lymphocytes # (Auto) 2.6 x10^3/uL (1.0-4.8) Monocytes # (Auto) 0.5 x10^3/uL (0.0-1.1) Eosinophils # (Auto) 0.1 x10^3/uL (0.0-0.7) Basophils # (Auto) 0.1 x10^3/uL (0.0-0.2) Prothrombin Time 14.2 SEC (11.7-14.0) Prothromb Time International Ratio 1.2 (0.8-1.1) Sodium Level 139 mmol/L (136-145) Potassium Level 4.1 mmol/L (3.5-5.1) Chloride Level 101 mmol/L (98-107) Carbon Dioxide Level 27 mmol/L (21-32) Anion Gap 11 (6-14) Blood Urea Nitrogen 12 mg/dL (7-20) Creatinine 0.9 mg/dL (0.6-1.0) Estimated GFR (Cockcroft-Gault) 78.1 BUN/Creatinine Ratio 13 (6-20) Glucose Level 148 mg/dL (70-99) Calcium Level 9.6 mg/dL (8.5-10.1) Magnesium Level 1.7 mg/dL (1.8-2.4) Total Bilirubin 0.7 mg/dL (0.2-1.0) Aspartate Amino Transf (AST/SGOT) 22 U/L (15-37) Alanine Aminotransferase (ALT/SGPT) 33 U/L (14-59) Alkaline Phosphatase 98 U/L (46-116) Troponin I Quantitative 0.027 ng/mL (0.000-0.055) SK-Vrj-H-Type Natriuretic Peptide 2015 pg/mL (0-124) Total Protein 7.7 g/dL (6.4-8.2) Albumin 3.7 g/dL (3.4-5.0) Albumin/Globulin Ratio 0.9 (1.0-1.7) Urine Collection Type Unknown Urine Color Yellow Urine Clarity Clear Urine pH 6.0 Urine Specific [place] <=1.005 Urine Protein Negative mg/dL (NEG-TRACE) Urine Glucose (UA) Negative mg/dL (NEG) Urine Ketones (Stick) Negative mg/dL (NEG) Urine Blood Negative (NEG) Urine Nitrite Negative (NEG) Urine Bilirubin Negative (NEG) Urine Urobilinogen Dipstick 0.2 mg/dL (0.2 mg/dL) Urine Leukocyte Esterase Negative (NEG) Urine RBC 0 /HPF (0-2) Urine WBC 0 /HPF (0-4) Urine Squamous Epithelial Cells Occ /LPF Urine Bacteria 0 /HPF (0-FEW) Influenza Type A Antigen Negative (NEGATIVE) Influenza Type B Antigen Negative (NEGATIVE) Glucose (Fingerstick) 143 mg/dL (70-99) Laboratory Tests Test 03/17/17 10:40 03/17/17 10:45 03/17/17 11:10 03/17/17 12:56 White Blood Count 10.0 x10^3/uL (4.0-11.0) Red Blood Count 3.92 x10^6/uL (3.50-5.40) Hemoglobin 10.5 g/dL (12.0-15.5) Hematocrit 32.1 % (36.0-47.0) Mean Corpuscular Volume 82 fL (79-100) Mean Corpuscular Hemoglobin 27 pg (25-35) Mean Corpuscular Hemoglobin Concent 33 g/dL (31-37) Red Cell Distribution Width 15.3 % (11.5-14.5) Platelet Count 246 x10^3/uL (140-400) Neutrophils (%) (Auto) 67 % (31-73) Lymphocytes (%) (Auto) 26 % (24-48) Monocytes (%) (Auto) 5 % (0-9) Eosinophils (%) (Auto) 1 % (0-3) Basophils (%) (Auto) 1 % (0-3) Neutrophils # (Auto) 6.7 x10^3uL (1.8-7.7) Lymphocytes # (Auto) 2.6 x10^3/uL (1.0-4.8) Monocytes # (Auto) 0.5 x10^3/uL (0.0-1.1) Eosinophils # (Auto) 0.1 x10^3/uL (0.0-0.7) Basophils # (Auto) 0.1 x10^3/uL (0.0-0.2) Prothrombin Time 14.2 SEC (11.7-14.0) Prothromb Time International Ratio 1.2 (0.8-1.1) Sodium Level 139 mmol/L (136-145) Potassium Level 4.1 mmol/L (3.5-5.1) Chloride Level 101 mmol/L (98-107) Carbon Dioxide Level 27 mmol/L (21-32) Anion Gap 11 (6-14) Blood Urea Nitrogen 12 mg/dL (7-20) Creatinine 0.9 mg/dL (0.6-1.0) Estimated GFR (Cockcroft-Gault) 78.1 BUN/Creatinine Ratio 13 (6-20) Glucose Level 148 mg/dL (70-99) Calcium Level 9.6 mg/dL (8.5-10.1) Magnesium Level 1.7 mg/dL (1.8-2.4) Total Bilirubin 0.7 mg/dL (0.2-1.0) Aspartate Amino Transf (AST/SGOT) 22 U/L (15-37) Alanine Aminotransferase (ALT/SGPT) 33 U/L (14-59) Alkaline Phosphatase 98 U/L (46-116) Troponin I Quantitative 0.027 ng/mL (0.000-0.055) DJ-Kji-Y-Type Natriuretic Peptide 2015 pg/mL (0-124) Total Protein 7.7 g/dL (6.4-8.2) Albumin 3.7 g/dL (3.4-5.0) Albumin/Globulin Ratio 0.9 (1.0-1.7) Urine Collection Type Unknown Urine Color Yellow Urine Clarity Clear Urine pH 6.0 Urine Specific [place] <=1.005 Urine Protein Negative mg/dL (NEG-TRACE) Urine Glucose (UA) Negative mg/dL (NEG) Urine Ketones (Stick) Negative mg/dL (NEG) Urine Blood Negative (NEG) Urine Nitrite Negative (NEG) Urine Bilirubin Negative (NEG) Urine Urobilinogen Dipstick 0.2 mg/dL (0.2 mg/dL) Urine Leukocyte Esterase Negative (NEG) Urine RBC 0 /HPF (0-2) Urine WBC 0 /HPF (0-4) Urine Squamous Epithelial Cells Occ /LPF Urine Bacteria 0 /HPF (0-FEW) Influenza Type A Antigen Negative (NEGATIVE) Influenza Type B Antigen Negative (NEGATIVE) Glucose (Fingerstick) 143 mg/dL (70-99) Images Images Findings: The cardiomediastinal silhouette grossly appears unremarkable. Probable minimal prominent appearing bilateral interstitial lung markings. Impression: Probable minimal congestive changes. ALYSE LIAO MD Mar 17, 2017 14:39
[2017-03-17] MEDS ORDERED: IOHEXOL 300 MG/ML 100ML VIAL. IV ONE (14:45)
[2017-03-17 14:53] LABS: BARBITURATES NEG (NEG); BENZODIAZEPINES NEG (NEG); CANNABINOIDS NEG (NEG); COCAINE NEG (NEG); METHADONE NEG (NEG); OPIATES NEG (NEG); PHENCYCLIDINE NEG (NEG)
[2017-03-17 15:00] VITALS: BP 148/55
[2017-03-17] MEDS: INSULIN ASPART 300 UNITS/3 ML INSULN.PEN SQ SCH ×2 (15:00→17:00)
[2017-03-17] MEDS ORDERED: DEXTROSE 50% 25 GM / 50ML DISP.SYRIN. IV PRN (15:00)
[2017-03-17] MEDS ORDERED: CONTRAST GIVEN MC PRN (15:00)
--- NOTE | 2017-03-17 15:41 | RAD ---
Examination: CT angiography abdomen and pelvis History: History of accelerated hypertension Comparison: None Technique: Axial CT and radiographic images of the abdomen pelvis were performed with IV contrast. Coronal and sagittal 3-D MIP reformats are performed volumetric 3-D reformats of the aorta are performed. PQRS Compliance Statement: One or more of the following individualized dose reduction techniques were utilized for this examination: 1. Automated exposure control 2. Adjustment of the mA and/or kV according to patient size 3. Use of iterative reconstruction technique Findings: Small bilateral pleural effusions. The caliber of the aorta grossly appears unremarkable with mild aortic atherosclerosis. The visualized celiac artery, superior mesenteric artery, inferior mesenteric artery are patent. The bilateral renal arteries are patent. No evidence of hemodynamically significant stenosis identified visualized in the aorta and its visualized branches. The bilateral iliac arteries are patent. The bilateral kidneys enhance symmetrically. Tiny sclerotic density identified in the left femoral head region likely a small bone island. The visualized liver, spleen, adrenals, pancreas grossly appear unremarkable on this angiographic images. Impression: 1. No evidence of hemodynamically significant stenosis in the abdominal aorta and its visualized branches. 2. Small bilateral pleural effusions.
--- NOTE | 2017-03-17 15:43 | RAD ---
Examination: Ultrasound kidneys History: History of hypertension Comparison: None available Findings: The right kidney measures 9.9 x 3.5 x 4.3 cm. Left kidney measures 11.0 x 4.3 x 4.4 cm. The proximal and mid aorta appear patent. Bilateral ureteral jets are not visualized in the urinary bladder. Partially visualized small right pleural effusion. Impression: Minimally small appearing right kidney. Bilateral jets could not be identified in the urinary bladder.
[2017-03-17] MEDS: FLUTICASONE 50MCG/NASAL SPRAY 16GM BOTTLE. NS SCH (17:28)
[2017-03-17 19:22] VITALS: BP 170/53
[2017-03-17] MEDS: ATORVASTATIN CALCIUM 10 MG TABLET. PO SCH (20:28)
[2017-03-17] MEDS: cloNIDine HCL 0.2 MG TABLET PO SCH (20:29)
[2017-03-17] MEDS ORDERED: cloNIDine HCL 0.1 MG TABLET PO SCH (21:00)
[2017-03-17 23:59] VITALS: BP 164/56
[2017-03-18 03:19] VITALS: BP 138/72
--- NOTE | 2017-03-18 03:21 | CONS ---
DATE OF CONSULTATION: PRIMARY PHYSICIAN: Dr. Gonzalez. CONSULTING PHYSICIAN: Dr. Brown. REASON FOR CONSULTATION: Accelerated hypertension. HISTORY OF PRESENT ILLNESS: The patient is a 56-year-old female who claims she has had high blood pressure since her 20s-30s. She also has a strong family history of hypertension; a sister has had a stroke in the past and is wheelchair bound from her high blood pressure. She was recently evaluated by Dr. Brown for malignant hypertension. Per my discussion with Dr. Brown, VMA, metanephrines, etc., have been checked and noncontributory to her hypertension. She has also had renal artery Dopplers at [facility]; results of these are not available to me for review, but are nonrevealing per my discussion. The patient claimed she was doing well until Wednesday and even midway through Wednesday. She checks her blood pressures 4 times a day. She claims she started to do some cleaning on the kitchen and noticed she was increasingly short of breath and had developed a headache. She eventually checked her blood pressures. Her blood pressures were high. This led to further anxiety. She swear she has not missed any blood pressure medications at this time. Denies NSAID use. Denies any new medications that she is aware of. She did call the office and was told to increase her hydralazine which she did, but blood pressures did not come down. She presented to the ER, she was 229/96 and now without significant interventions, she is down to 134/60. I asked her almost 3 times if she had missed any doses of clonidine and she said no. For rest of the details, please see electronic renal consult note. ALYSE LIAO MD DR: ADRIAN/sahra JOB#: [id number] / [id number]
[2017-03-18 06:30] LABS: BASO % 1 % (0-3); EOS % 2 % (0-3); HEMATOCRIT 30.9 % (36.0-47.0); HEMOGLOBIN 9.9 g/dL (12.0-15.5); LYMPH # 2.4 x10^3/uL (1.0-4.8); LYMPH % 31 % (24-48); MEAN CORPUSCULAR HEMOGLOBIN 26 pg (25-35); MEAN CORPUSCULAR HGB CONC 32 g/dL (31-37); MEAN CORPUSCULAR VOLUME 81 fL (79-100); MONO % 7 % (0-9); NEUT % 59 % (31-73); PLATELET COUNT 233 x10^3/uL (140-400); RED BLOOD COUNT 3.79 x10^6/uL (3.50-5.40); RED CELL DISTRIBUTION WIDTH 14.9 % (11.5-14.5); WHITE BLOOD COUNT 7.7 x10^3/uL (4.0-11.0)
[2017-03-18 06:53] LABS: ALBUMIN 3.3 g/dL (3.4-5.0); CALCIUM 9.4 mg/dL (8.5-10.1); GFR 69.1; PHOSPHORUS 4.3 mg/dL (2.6-4.7); POTASSIUM 3.7 mmol/L (3.5-5.1)
[2017-03-18 07:15] VITALS: BP 170/57
[2017-03-18] MEDS: SPIRONOLACTONE 25 MG TABLET PO SCH (08:31)
[2017-03-18] MEDS: APIXABAN 5 MG TABLET. PO SCH ×2 (08:32→20:50)
[2017-03-18] MEDS: CITALOPRAM 20 MG TABLET. PO SCH (08:32)
[2017-03-18] MEDS: ASPIRIN ENTERIC COATED 81 MG TABLET.DR. PO SCH (08:32)
[2017-03-18] MEDS: CLOPIDOGREL BISULFATE 75 MG TABLET PO SCH (08:32)
[2017-03-18] MEDS: FUROSEMIDE 40 MG TABLET. PO SCH (08:36)
[2017-03-18] MEDS: cloNIDine HCL 0.1 MG TABLET PO SCH (08:36)
[2017-03-18] MEDS: INSULIN ASPART 300 UNITS/3 ML INSULN.PEN SQ SCH ×3 (08:38→17:00)
[2017-03-18] MEDS: LISINOPRIL 40 MG TABLET. PO SCH (08:42)
[2017-03-18] MEDS: FLUTICASONE 50MCG/NASAL SPRAY 16GM BOTTLE. NS SCH (09:00)
[2017-03-18] MEDS: ISOSORBIDE MONONITRATE ER 30 MG TAB.ER.24H PO SCH (09:44)
[2017-03-18 10:22] VITALS: BP 155/67
--- NOTE | 2017-03-18 11:46 | PDOC ---
SUBJECTIVE ROS F/u for Malig HTN OBJECTIVE Vital Signs Vital Signs Date Time Temp Pulse Resp B/P (MAP) Pulse Ox O2 Delivery O2 Flow Rate FiO2 03/18/17 10:22 54 16 155/67 (96) 96 Nasal Cannula 2.0 03/18/17 07:15 97.9 97.9 I & 0 Intake and Output 03/18/17 07:00 Intake Total 200 ml Output Total 1150 ml Balance -950 ml Intake Oral 200 ml Output Urine Total 1150 ml # Voids 3 PHYSICAL EXAM Physical Exam General Appearance: Awake: Alert Oriented x 3 Neck: No JVD or JVP Chest: CTA Shaggy Heart: S1 S2 Abdomen - Soft NTND Extremities - No Edema DIAGNOSIS/ASSESSMENT Assessment & Plan HTN - corrected On arrival to the floor (? after she got Lasix in ER) and not up again. W/up for Sec HTN as ordered and ongoing. May benefit from ^ Aldactone., wt loss and ? MARIA DOLORES eval; Unclear etio of recent accel. N mention of FMD on CTA. High likelihood that this is familliial/ Essential HTN. Problems: COMMENT/RELEVANT DATA Meds Current Medications Medications (Trade) Dose Ordered Sig/Jose Elias Start Time Stop Time Status Last Admin Dose Admin Apixaban (Eliquis) 5 mg BID 03/17/17 13:30 03/18/17 08:32 5 MG Aspirin (Ecotrin) 81 mg DAILY 03/17/17 13:30 03/18/17 08:32 81 MG Atorvastatin Calcium (Lipitor) 10 mg QHS 03/17/17 21:00 03/17/17 20:28 10 MG Citalopram Hydrobromide (CeleXA) 20 mg DAILY 03/17/17 13:30 03/18/17 08:32 20 MG Clonidine HCl (Catapres) 0.1 mg DAILY 03/18/17 09:00 03/18/17 08:36 0.1 MG Clopidogrel Bisulfate (Plavix) 75 mg DAILY 03/17/17 13:30 03/18/17 08:32 75 MG Dextrose (Dextrose 50%-Water Syringe) 12.5 gm PRN Q15MIN PRN 03/17/17 15:00 Fluticasone Propionate (Flonase) 2 spray DAILY 03/17/17 13:30 03/17/17 17:28 2 SPRAY Furosemide (Lasix) 40 mg DAILY 03/18/17 09:00 03/18/17 08:36 40 MG Hydralazine HCl (Apresoline) 50 mg TID 03/17/17 17:30 03/18/17 08:31 50 MG Info (Anti-Coagulation Monitoring By Pharmacy) 1 each PRN DAILY PRN 03/17/17 13:15 Info (Do NOT chart on this entry -- for MONITORING) 1 each PRN DAILY PRN 03/17/17 15:00 03/19/17 14:59 Insulin Aspart (NovoLOG) 0-5 UNITS TIDWMEALS 03/17/17 15:00 03/18/17 08:38 2 UNITS Iohexol (Omnipaque 300 Mg/ml) 90 ml 1X ONCE 03/17/17 14:45 03/17/17 14:46 DC 03/17/17 15:14 90 ML Isosorbide Mononitrate (Imdur) 60 mg DAILY 03/18/17 09:00 03/18/17 09:44 60 MG Lisinopril (Prinivil) 40 mg DAILY 03/18/17 09:00 03/18/17 08:42 40 MG Magnesium Sulfate/ Dextrose 50 ml @ 25 mls/hr PRN DAILY PRN 03/17/17 14:30 Metformin HCl (Glucophage) 1,000 mg DAILYWBKFT 03/19/17 08:00 Spironolactone (Aldactone) 25 mg DAILY 03/17/17 13:30 03/18/17 08:31 25 MG Lab Laboratory Tests Test 03/17/17 12:56 03/17/17 16:34 03/17/17 18:00 03/17/17 20:31 Glucose (Fingerstick) 143 mg/dL (70-99) 128 mg/dL (70-99) 200 mg/dL (70-99) Troponin I Quantitative 0.023 ng/mL (0.000-0.055) Test 03/18/17 00:20 03/18/17 05:15 03/18/17 08:07 03/18/17 11:29 Troponin I Quantitative 0.028 ng/mL (0.000-0.055) White Blood Count 7.7 x10^3/uL (4.0-11.0) Red Blood Count 3.79 x10^6/uL (3.50-5.40) Hemoglobin 9.9 g/dL (12.0-15.5) Hematocrit 30.9 % (36.0-47.0) Mean Corpuscular Volume 81 fL (79-100) Mean Corpuscular Hemoglobin 26 pg (25-35) Mean Corpuscular Hemoglobin Concent 32 g/dL (31-37) Red Cell Distribution Width 14.9 % (11.5-14.5) Platelet Count 233 x10^3/uL (140-400) Neutrophils (%) (Auto) 59 % (31-73) Lymphocytes (%) (Auto) 31 % (24-48) Monocytes (%) (Auto) 7 % (0-9) Eosinophils (%) (Auto) 2 % (0-3) Basophils (%) (Auto) 1 % (0-3) Neutrophils # (Auto) 4.5 x10^3uL (1.8-7.7) Lymphocytes # (Auto) 2.4 x10^3/uL (1.0-4.8) Monocytes # (Auto) 0.5 x10^3/uL (0.0-1.1) Eosinophils # (Auto) 0.2 x10^3/uL (0.0-0.7) Basophils # (Auto) 0.0 x10^3/uL (0.0-0.2) Sodium Level 140 mmol/L (136-145) Potassium Level 3.7 mmol/L (3.5-5.1) Chloride Level 102 mmol/L (98-107) Carbon Dioxide Level 28 mmol/L (21-32) Anion Gap 10 (6-14) Blood Urea Nitrogen 13 mg/dL (7-20) Creatinine 1.0 mg/dL (0.6-1.0) Estimated GFR (Cockcroft-Gault) 69.1 Glucose Level 184 mg/dL (70-99) Calcium Level 9.4 mg/dL (8.5-10.1) Phosphorus Level 4.3 mg/dL (2.6-4.7) Magnesium Level 2.0 mg/dL (1.8-2.4) Albumin 3.3 g/dL (3.4-5.0) Glucose (Fingerstick) 173 mg/dL (70-99) 183 mg/dL (70-99) ALYSE LIAO MD Mar 18, 2017 11:46
[2017-03-18] MEDS: ANTI-COAG MONITOR BY PHARMACY. MC PRN (12:30)
--- NOTE | 2017-03-18 14:25 | RAD ---
Ultrasound soft tissue neck thyroid History: Thyroid toxicosis Sonographic examination of the thyroid was performed and multiple static images were obtained. Findings: The right lobe of the thyroid measures 1.1 x 3.5 x 1.3 cm. There is a isoechoic nodule seen anteriorly in the mid right lobe that measures 5.5 x 6.4 x 4.7 mm. There is a small cyst in the upper pole and measures 3 x 3 x 3 mm. The isthmus appears normal measures 2.8 mm in thickness. The left lobe of the thyroid measures 3.8 x 2.1 x 1.4 cm and contains a heterogeneous nodule that measures 2.0 x 1.9 x 1.4 cm. Impression: The thyroid is normal size however there is a dominant nodule on the left. This could be an autonomously functioning nodule however a neoplasm is possible. Recommend ultrasound-guided fine-needle aspiration. A preliminary copy of this report was faxed the patient floor ([address] [place] [address]) at 1:12 pm on 03-18-17 by Sharlene Parks. Receipt of the faxed preliminary report was confirmed by patient's nurse, Rosie Barnes at 1:25 pm on 03-18-17
[2017-03-18 15:00] VITALS: BP 122/50
--- NOTE | 2017-03-18 16:51 | PDOC ---
CARDIOLOGY PROGRESS NOTE SUBJECTIVE: No acute events overnight. Remains hypertensive. OBJECTIVE: Vital SIgns: Vital Signs Date Time Temp Pulse Resp B/P (MAP) Pulse Ox O2 Delivery O2 Flow Rate FiO2 03/18/17 15:00 97.6 56 16 122/50 (74) 98 Room Air 97.6 03/18/17 10:22 2.0 I & O Intake and Output 03/18/17 06:59 Intake Total 200 ml Output Total 1150 ml Balance -950 ml Intake Oral 200 ml Output Urine Total 1150 ml # Voids 3 Objective: GEN.: No apparent distress. Alert and oriented. HEENT: Head is normocephalic, atraumatic NECK: Supple. LUNGS: Clear to auscultation. HEART: RRR, S1, S2 present. Peripheral pulses intact ABDOMEN: Soft, nontender. Positive bowel sounds. EXTREMITIES: Without any cyanosis. NEUROLOGIC: Normal speech, normal tone PSYCHIATRIC: Normal affect, normal mood. SKIN: No ulcerations CURRENT MEDICATIONS: Current Medications Medications (Trade) Dose Ordered Sig/Jose Elias Start Time Stop Time Status Last Admin Dose Admin Apixaban (Eliquis) 5 mg BID 03/17/17 13:30 03/18/17 08:32 5 MG Aspirin (Ecotrin) 81 mg DAILY 03/17/17 13:30 03/18/17 12:23 DC 03/18/17 08:32 81 MG Atorvastatin Calcium (Lipitor) 10 mg QHS 03/17/17 21:00 03/17/17 20:28 10 MG Citalopram Hydrobromide (CeleXA) 20 mg DAILY 03/17/17 13:30 03/18/17 08:32 20 MG Clonidine HCl (Catapres) 0.1 mg DAILY 03/18/17 09:00 03/18/17 08:36 0.1 MG Clopidogrel Bisulfate (Plavix) 75 mg DAILY 03/17/17 13:30 03/18/17 08:32 75 MG Dextrose (Dextrose 50%-Water Syringe) 12.5 gm PRN Q15MIN PRN 03/17/17 15:00 Fluticasone Propionate (Flonase) 2 spray DAILY 03/17/17 13:30 03/17/17 17:28 2 SPRAY Furosemide (Lasix) 40 mg DAILY 03/18/17 09:00 03/18/17 08:36 40 MG Hydralazine HCl (Apresoline) 50 mg TID 03/17/17 17:30 03/18/17 14:28 50 MG Info (Anti-Coagulation Monitoring By Pharmacy) 1 each PRN DAILY PRN 03/17/17 13:15 03/18/17 12:30 1 EACH Info (Do NOT chart on this entry -- for MONITORING) 1 each PRN DAILY PRN 03/17/17 15:00 03/19/17 14:59 Insulin Aspart (NovoLOG) 0-5 UNITS TIDWMEALS 03/17/17 15:00 03/18/17 12:28 2 UNITS Iohexol (Omnipaque 300 Mg/ml) 90 ml 1X ONCE 03/17/17 14:45 03/17/17 14:46 DC 03/17/17 15:14 90 ML Isosorbide Mononitrate (Imdur) 60 mg DAILY 03/18/17 09:00 03/18/17 09:44 60 MG Lisinopril (Prinivil) 40 mg DAILY 03/18/17 09:00 03/18/17 08:42 40 MG Magnesium Sulfate/ Dextrose 50 ml @ 25 mls/hr PRN DAILY PRN 03/17/17 14:30 Metformin HCl (Glucophage) 1,000 mg DAILYWBKFT 03/19/17 08:00 Spironolactone (Aldactone) 25 mg DAILY 03/17/17 13:30 03/18/17 08:31 25 MG DIAGNOSTIC TESTING: Labs reviewed ASSESSMENT: 1. Essential hypertension with difficult to control despite medications of a wide variety 2. Diastolic heart failure 3. 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 Currently stable. Problems: PLAN: 1. I've asked her to have her family members bring in her pill bottles and we will correlate with what she is exactly getting here and ensure that her blood pressure slightly better controlled overnight with plans for discharge tomorrow after her 24-hour urine analysis is been completed. Appreciate nephrology input. ROSEMARY PIZARRO MD Mar 18, 2017 16:51
--- NOTE | 2017-03-18 17:03 | PDOC ---
PROGRESS NOTES Vitals Vitals Vital Signs Date Time Temp Pulse Resp B/P (MAP) Pulse Ox O2 Delivery O2 Flow Rate FiO2 03/18/17 15:00 97.6 56 16 122/50 (74) 98 Room Air 97.6 03/18/17 10:22 2.0 Physical Exam Physical Exam ROS Review of System CONSTITUTIONAL: No fever or chills EYES: No recent changes SKIN: No rash or itching CARDIOVASCULAR: +chest pain RESPIRATORY: No SOB or cough GASTROINTESTINAL: No nausea, vomiting or abdominal pain NEUROLOGICAL: No headaches or weakness ENDOCRINE: No cold or heat intolerance GENITOURINARY: No urgency or frequency of urination MUSCULOSKELETAL: No back pain or joint pain LYMPHATICS: No enlarged lymph nodes PSYCHIATRIC: No anxiety or depression Physical Exam Physical Exam GEN.: No apparent distress. Alert and oriented. HEENT: Head is normocephalic, atraumatic NECK: Supple. THYROID nodule seen on US LUNGS: Clear to auscultation. HEART: RRR, S1, S2 present. Peripheral pulses intact ABDOMEN: Soft, nontender. Positive bowel sounds. EXTREMITIES: Without any cyanosis. NEUROLOGIC: Normal speech, normal tone PSYCHIATRIC: Normal affect, normal mood. SKIN: No ulcerations Sonographic examination of the thyroid was performed and multiple static images were obtained. Findings: The right lobe of the thyroid measures 1.1 x 3.5 x 1.3 cm. There is a isoechoic nodule seen anteriorly in the mid right lobe that measures 5.5 x 6.4 x 4.7 mm. There is a small cyst in the upper pole and measures 3 x 3 x 3 mm. The isthmus appears normal measures 2.8 mm in thickness. The left lobe of the thyroid measures 3.8 x 2.1 x 1.4 cm and contains a heterogeneous nodule that measures 2.0 x 1.9 x 1.4 cm. Impression: The thyroid is normal size however there is a dominant nodule on the left. This could be an autonomously functioning nodule however a neoplasm is possible. Recommend ultrasound-guided fine-needle aspiration. A preliminary copy of this report was faxed the patient floor ([address] [place] [address]) at 1:12 pm on 03-18-17 by Sharlene Parks. Receipt of the faxed preliminary report was confirmed by patient's nurse, Rosie Barnes at 1:25 pm on 03-18-17 DICTATED and SIGNED BY: BIBIANA HU III, MD General: Alert, Oriented X3, Cooperative, No acute distress Heart: Regular rate, Normal S1, Normal S2, No murmurs Abdomen: Soft, No tenderness Extremities: No edema, Normal pulses Skin: No significant lesion Labs LABS Examination: CT angiography abdomen and pelvis History: History of accelerated hypertension Comparison: None Technique: Axial CT and radiographic images of the abdomen pelvis were performed with IV contrast. Coronal and sagittal 3-D MIP reformats are performed volumetric 3-D reformats of the aorta are performed. PQRS Compliance Statement: One or more of the following individualized dose reduction techniques were utilized for this examination: 1. Automated exposure control 2. Adjustment of the mA and/or kV according to patient size 3. Use of iterative reconstruction technique Findings: Small bilateral pleural effusions. The caliber of the aorta grossly appears unremarkable with mild aortic atherosclerosis. The visualized celiac artery, superior mesenteric artery, inferior mesenteric artery are patent. The bilateral renal arteries are patent. No evidence of hemodynamically significant stenosis identified visualized in the aorta and its visualized branches. The bilateral iliac arteries are patent. The bilateral kidneys enhance symmetrically. Tiny sclerotic density identified in the left femoral head region likely a small bone island. The visualized liver, spleen, adrenals, pancreas grossly appear unremarkable on this angiographic images. Impression: 1. No evidence of hemodynamically significant stenosis in the abdominal aorta and its visualized branches. 2. Small bilateral pleural effusions. Laboratory Tests Test 03/17/17 18:00 03/17/17 20:31 03/18/17 00:20 03/18/17 05:15 Troponin I Quantitative 0.023 ng/mL (0.000-0.055) 0.028 ng/mL (0.000-0.055) Glucose (Fingerstick) 200 mg/dL (70-99) White Blood Count 7.7 x10^3/uL (4.0-11.0) Red Blood Count 3.79 x10^6/uL (3.50-5.40) Hemoglobin 9.9 g/dL (12.0-15.5) Hematocrit 30.9 % (36.0-47.0) Mean Corpuscular Volume 81 fL (79-100) Mean Corpuscular Hemoglobin 26 pg (25-35) Mean Corpuscular Hemoglobin Concent 32 g/dL (31-37) Red Cell Distribution Width 14.9 % (11.5-14.5) Platelet Count 233 x10^3/uL (140-400) Neutrophils (%) (Auto) 59 % (31-73) Lymphocytes (%) (Auto) 31 % (24-48) Monocytes (%) (Auto) 7 % (0-9) Eosinophils (%) (Auto) 2 % (0-3) Basophils (%) (Auto) 1 % (0-3) Neutrophils # (Auto) 4.5 x10^3uL (1.8-7.7) Lymphocytes # (Auto) 2.4 x10^3/uL (1.0-4.8) Monocytes # (Auto) 0.5 x10^3/uL (0.0-1.1) Eosinophils # (Auto) 0.2 x10^3/uL (0.0-0.7) Basophils # (Auto) 0.0 x10^3/uL (0.0-0.2) Sodium Level 140 mmol/L (136-145) Potassium Level 3.7 mmol/L (3.5-5.1) Chloride Level 102 mmol/L (98-107) Carbon Dioxide Level 28 mmol/L (21-32) Anion Gap 10 (6-14) Blood Urea Nitrogen 13 mg/dL (7-20) Creatinine 1.0 mg/dL (0.6-1.0) Estimated GFR (Cockcroft-Gault) 69.1 Glucose Level 184 mg/dL (70-99) Calcium Level 9.4 mg/dL (8.5-10.1) Phosphorus Level 4.3 mg/dL (2.6-4.7) Magnesium Level 2.0 mg/dL (1.8-2.4) Albumin 3.3 g/dL (3.4-5.0) Test 03/18/17 08:07 03/18/17 11:29 03/18/17 16:50 Glucose (Fingerstick) 173 mg/dL (70-99) 183 mg/dL (70-99) 144 mg/dL (70-99) Assessment and Plan Assessmemt and Plan Problems Medical Problems: (1) Accelerated hypertension Status: Acute (2) Acute on chronic systolic (congestive) heart failure Status: Acute VTE Prophylaxis Ordered VTE Prophylaxis Devices: Yes VTE Pharmacological Prophylaxi: Yes Assessment/Plan ~ Hypertensive Urgency ~ CAD ~ DM II ~ Hx of Right SFA dissection/stenosis ~ PVD ~ HLD- statin - thyroid nodule, rec FNBX Plan: Continue with home BP medications, cardiology following, consult renal for other BP recommendations patient has been compliant with her medications Continue with Plavix, asa, eliquis accuchecks, metformin Problems: Comment Review of Relevant I have reviewed the following items ilya (where applicable) has been applied. Labs Laboratory Tests Test 03/17/17 10:40 03/17/17 10:45 03/17/17 11:10 03/17/17 12:56 White Blood Count 10.0 x10^3/uL (4.0-11.0) Red Blood Count 3.92 x10^6/uL (3.50-5.40) Hemoglobin 10.5 g/dL (12.0-15.5) Hematocrit 32.1 % (36.0-47.0) Mean Corpuscular Volume 82 fL (79-100) Mean Corpuscular Hemoglobin 27 pg (25-35) Mean Corpuscular Hemoglobin Concent 33 g/dL (31-37) Red Cell Distribution Width 15.3 % (11.5-14.5) Platelet Count 246 x10^3/uL (140-400) Neutrophils (%) (Auto) 67 % (31-73) Lymphocytes (%) (Auto) 26 % (24-48) Monocytes (%) (Auto) 5 % (0-9) Eosinophils (%) (Auto) 1 % (0-3) Basophils (%) (Auto) 1 % (0-3) Neutrophils # (Auto) 6.7 x10^3uL (1.8-7.7) Lymphocytes # (Auto) 2.6 x10^3/uL (1.0-4.8) Monocytes # (Auto) 0.5 x10^3/uL (0.0-1.1) Eosinophils # (Auto) 0.1 x10^3/uL (0.0-0.7) Basophils # (Auto) 0.1 x10^3/uL (0.0-0.2) Prothrombin Time 14.2 SEC (11.7-14.0) Prothromb Time International Ratio 1.2 (0.8-1.1) Sodium Level 139 mmol/L (136-145) Potassium Level 4.1 mmol/L (3.5-5.1) Chloride Level 101 mmol/L (98-107) Carbon Dioxide Level 27 mmol/L (21-32) Anion Gap 11 (6-14) Blood Urea Nitrogen 12 mg/dL (7-20) Creatinine 0.9 mg/dL (0.6-1.0) Estimated GFR (Cockcroft-Gault) 78.1 BUN/Creatinine Ratio 13 (6-20) Glucose Level 148 mg/dL (70-99) Calcium Level 9.6 mg/dL (8.5-10.1) Magnesium Level 1.7 mg/dL (1.8-2.4) Total Bilirubin 0.7 mg/dL (0.2-1.0) Aspartate Amino Transf (AST/SGOT) 22 U/L (15-37) Alanine Aminotransferase (ALT/SGPT) 33 U/L (14-59) Alkaline Phosphatase 98 U/L (46-116) Troponin I Quantitative 0.027 ng/mL (0.000-0.055) VR-Ics-Y-Type Natriuretic Peptide 2015 pg/mL (0-124) Total Protein 7.7 g/dL (6.4-8.2) Albumin 3.7 g/dL (3.4-5.0) Albumin/Globulin Ratio 0.9 (1.0-1.7) Urine Collection Type Unknown Urine Color Yellow Urine Clarity Clear Urine pH 6.0 Urine Specific [place] <=1.005 Urine Protein Negative mg/dL (NEG-TRACE) Urine Glucose (UA) Negative mg/dL (NEG) Urine Ketones (Stick) Negative mg/dL (NEG) Urine Blood Negative (NEG) Urine Nitrite Negative (NEG) Urine Bilirubin Negative (NEG) Urine Urobilinogen Dipstick 0.2 mg/dL (0.2 mg/dL) Urine Leukocyte Esterase Negative (NEG) Urine RBC 0 /HPF (0-2) Urine WBC 0 /HPF (0-4) Urine Squamous Epithelial Cells Occ /LPF Urine Bacteria 0 /HPF (0-FEW) Urine Opiates Screen Neg (NEG) Urine Methadone Screen Neg (NEG) Urine Barbiturates Neg (NEG) Urine Phencyclidine Screen Neg (NEG) Urine Amphetamine/Methamphetamine Neg (NEG) Urine Benzodiazepines Screen Neg (NEG) Urine Cocaine Screen Neg (NEG) Urine Cannabinoids Screen Neg (NEG) Urine Ethyl Alcohol Neg (NEG) Influenza Type A Antigen Negative (NEGATIVE) Influenza Type B Antigen Negative (NEGATIVE) Glucose (Fingerstick) 143 mg/dL (70-99) Test 03/17/17 16:34 03/17/17 18:00 03/17/17 20:31 03/18/17 00:20 Glucose (Fingerstick) 128 mg/dL (70-99) 200 mg/dL (70-99) Troponin I Quantitative 0.023 ng/mL (0.000-0.055) 0.028 ng/mL (0.000-0.055) Test 03/18/17 05:15 03/18/17 08:07 03/18/17 11:29 03/18/17 16:50 White Blood Count 7.7 x10^3/uL (4.0-11.0) Red Blood Count 3.79 x10^6/uL (3.50-5.40) Hemoglobin 9.9 g/dL (12.0-15.5) Hematocrit 30.9 % (36.0-47.0) Mean Corpuscular Volume 81 fL (79-100) Mean Corpuscular Hemoglobin 26 pg (25-35) Mean Corpuscular Hemoglobin Concent 32 g/dL (31-37) Red Cell Distribution Width 14.9 % (11.5-14.5) Platelet Count 233 x10^3/uL (140-400) Neutrophils (%) (Auto) 59 % (31-73) Lymphocytes (%) (Auto) 31 % (24-48) Monocytes (%) (Auto) 7 % (0-9) Eosinophils (%) (Auto) 2 % (0-3) Basophils (%) (Auto) 1 % (0-3) Neutrophils # (Auto) 4.5 x10^3uL (1.8-7.7) Lymphocytes # (Auto) 2.4 x10^3/uL (1.0-4.8) Monocytes # (Auto) 0.5 x10^3/uL (0.0-1.1) Eosinophils # (Auto) 0.2 x10^3/uL (0.0-0.7) Basophils # (Auto) 0.0 x10^3/uL (0.0-0.2) Sodium Level 140 mmol/L (136-145) Potassium Level 3.7 mmol/L (3.5-5.1) Chloride Level 102 mmol/L (98-107) Carbon Dioxide Level 28 mmol/L (21-32) Anion Gap 10 (6-14) Blood Urea Nitrogen 13 mg/dL (7-20) Creatinine 1.0 mg/dL (0.6-1.0) Estimated GFR (Cockcroft-Gault) 69.1 Glucose Level 184 mg/dL (70-99) Calcium Level 9.4 mg/dL (8.5-10.1) Phosphorus Level 4.3 mg/dL (2.6-4.7) Magnesium Level 2.0 mg/dL (1.8-2.4) Albumin 3.3 g/dL (3.4-5.0) Glucose (Fingerstick) 173 mg/dL (70-99) 183 mg/dL (70-99) 144 mg/dL (70-99) Laboratory Tests Test 03/17/17 18:00 03/17/17 20:31 03/18/17 00:20 03/18/17 05:15 Troponin I Quantitative 0.023 ng/mL (0.000-0.055) 0.028 ng/mL (0.000-0.055) Glucose (Fingerstick) 200 mg/dL (70-99) White Blood Count 7.7 x10^3/uL (4.0-11.0) Red Blood Count 3.79 x10^6/uL (3.50-5.40) Hemoglobin 9.9 g/dL (12.0-15.5) Hematocrit 30.9 % (36.0-47.0) Mean Corpuscular Volume 81 fL (79-100) Mean Corpuscular Hemoglobin 26 pg (25-35) Mean Corpuscular Hemoglobin Concent 32 g/dL (31-37) Red Cell Distribution Width 14.9 % (11.5-14.5) Platelet Count 233 x10^3/uL (140-400) Neutrophils (%) (Auto) 59 % (31-73) Lymphocytes (%) (Auto) 31 % (24-48) Monocytes (%) (Auto) 7 % (0-9) Eosinophils (%) (Auto) 2 % (0-3) Basophils (%) (Auto) 1 % (0-3) Neutrophils # (Auto) 4.5 x10^3uL (1.8-7.7) Lymphocytes # (Auto) 2.4 x10^3/uL (1.0-4.8) Monocytes # (Auto) 0.5 x10^3/uL (0.0-1.1) Eosinophils # (Auto) 0.2 x10^3/uL (0.0-0.7) Basophils # (Auto) 0.0 x10^3/uL (0.0-0.2) Sodium Level 140 mmol/L (136-145) Potassium Level 3.7 mmol/L (3.5-5.1) Chloride Level 102 mmol/L (98-107) Carbon Dioxide Level 28 mmol/L (21-32) Anion Gap 10 (6-14) Blood Urea Nitrogen 13 mg/dL (7-20) Creatinine 1.0 mg/dL (0.6-1.0) Estimated GFR (Cockcroft-Gault) 69.1 Glucose Level 184 mg/dL (70-99) Calcium Level 9.4 mg/dL (8.5-10.1) Phosphorus Level 4.3 mg/dL (2.6-4.7) Magnesium Level 2.0 mg/dL (1.8-2.4) Albumin 3.3 g/dL (3.4-5.0) Test 03/18/17 08:07 03/18/17 11:29 03/18/17 16:50 Glucose (Fingerstick) 173 mg/dL (70-99) 183 mg/dL (70-99) 144 mg/dL (70-99) Medications Current Medications Furosemide (Lasix) 40 mg 1X ONCE IVP Last administered on 03/17/17 14:10; Start 03/17/17 at 13:15; Stop 03/17/17 at 13:16; Status DC Apixaban (Eliquis) 5 mg BID PO Last administered on 03/18/17 08:32; Start 03/17/17 at 13:30 Aspirin (Ecotrin) 81 mg DAILY PO Last administered on 03/18/17 08:32; Start 03/17/17 at 13:30; Stop 03/18/17 at 12:23; Status DC Atorvastatin Calcium (Lipitor) 10 mg QHS PO Last administered on 03/17/17 20: 28; Start 03/17/17 at 21:00 Citalopram Hydrobromide (CeleXA) 20 mg DAILY PO Last administered on 03/18/17 08:32; Start 03/17/17 at 13:30 Clonidine HCl (Catapres) 0.1 mg QHS PO ; Start 03/17/17 at 21:00; Stop 03/17/17 at 21:00; Status DC Clopidogrel Bisulfate (Plavix) 75 mg DAILY PO Last administered on 03/18/17 08 :32; Start 03/17/17 at 13:30 Fluticasone Propionate (Flonase) 2 spray DAILY NS Last administered on 17:28; Start 03/17/17 at 13:30 Furosemide (Lasix) 40 mg DAILY PO Last administered on 03/18/17 08:36; Start 03/18/17 at 09:00 Hydralazine HCl (Apresoline) 50 mg BID PO ; Start 03/17/17 at 13:30; Stop at 17:06; Status DC Lisinopril (Prinivil) 40 mg BID PO Last administered on 03/17/17 20:28; Start 03/17/17 at 13:30; Stop 03/18/17 at 08:30; Status DC Metformin HCl (Glucophage) 1,000 mg DAILYWBKFT PO ; Start 03/17/17 at 13:30; Stop 03/17/17 at 14:46; Status DC Spironolactone (Aldactone) 25 mg DAILY PO Last administered on 03/18/17 08:31 ; Start 03/17/17 at 13:30 Info (Anti-Coagulation Monitoring By Pharmacy) 1 each PRN DAILY PRN MC SEE COMMENTS Last administered on 03/18/17 12:30; Start 03/17/17 at 13:15 Magnesium Sulfate/ Dextrose 50 ml @ 25 mls/hr PRN DAILY PRN IV for Mag < 1.7 on am labs; Start 03/17/17 at 14:30 Iohexol (Omnipaque 300 Mg/ml) 90 ml 1X ONCE IV Last administered on 03/17/17 15:14; Start 03/17/17 at 14:45; Stop 03/17/17 at 14:46; Status DC Metformin HCl (Glucophage) 1,000 mg DAILYWBKFT PO ; Start 03/19/17 at 08:00 Info (Do NOT chart on this entry -- for MONITORING) 1 each PRN DAILY PRN MC SEE COMMENTS; Start 03/17/17 at 15:00; Stop 03/19/17 at 14:59 Insulin Aspart (NovoLOG) 0-5 UNITS TIDWMEALS SQ Last administered on 03/18/17 12:28; Start 03/17/17 at 15:00 Dextrose (Dextrose 50%-Water Syringe) 12.5 gm PRN Q15MIN PRN IV SEE COMMENTS; Start 03/17/17 at 15:00 Clonidine HCl (Catapres) 0.2 mg QHS PO Last administered on 03/17/17 20:29; Start 03/17/17 at 21:00 Hydralazine HCl (Apresoline) 50 mg TID PO Last administered on 03/18/17 14:28 ; Start 03/17/17 at 17:30 Clonidine HCl (Catapres) 0.1 mg DAILY PO Last administered on 03/18/17 08:36; Start 03/18/17 at 09:00 Lisinopril (Prinivil) 40 mg DAILY PO Last administered on 03/18/17 08:42; Start 03/18/17 at 09:00 Isosorbide Mononitrate (Imdur) 60 mg DAILY PO Last administered on 03/18/17 09 :44; Start 03/18/17 at 09:00 Active Scripts Active Eliquis (Apixaban) 5 Mg Tablet 5 Mg PO BID 30 Days Aspirin Ec (Aspirin) 81 Mg Tablet.dr 1 Tab PO DAILY Clopidogrel (Clopidogrel Bisulfate) 75 Mg Tablet 1 Tab PO DAILY Reported Humalog (Insulin Lispro) 100 Unit/1 Ml Cartridge 100 Unit SQ Clonidine Hcl 0.1 Mg Tablet 1 Tab PO QHS 2 at hs. 1 at am Spironolactone 25 Mg Tablet 1 Tab PO DAILY Fluticasone Propionate Nasal [place] (Fluticasone Propionate) 16 Gm [place].susp 2 [place] NS DAILY Mag64 (Magnesium Chloride) 64 Mg Tablet.er 64 Mg PO Lisinopril 40 Mg Tablet 1 Tab PO BID Metformin Hcl 1,000 Mg Tablet 1,000 Mg PO DAILYWBKFT Atorvastatin Calcium 10 Mg Tablet 1 Tab PO DAILY Furosemide 40 Mg Tablet 1 Tab PO DAILY Citalopram Hbr (Citalopram Hydrobromide) 20 Mg Tablet 1 Tab PO DAILY Hydralazine Hcl 50 Mg Tablet 1 Tab PO BID Vitals/I & O Vital Sign - Last 24 Hours 03/17/17 03/17/17 03/17/17 03/17/17 17:27 19:22 19:48 20:28 Temp 98.7 98.7 Pulse 60 71 71 Resp 16 B/P (MAP) 186/75 170/53 (92) 170/53 Pulse Ox 97 O2 Delivery Room Air Room Air 03/17/17 03/17/17 03/17/17 03/18/17 20:29 22:45 23:59 03:19 Temp 98.3 97.9 98.3 97.9 Pulse 71 48 53 53 Resp 16 16 B/P (MAP) 170/53 165/70 164/56 (92) 138/72 (94) Pulse Ox 96 97 O2 Delivery Room Air Nasal Cannula O2 Flow Rate 2.0 03/18/17 03/18/17 03/18/17 03/18/17 07:15 07:52 08:31 08:36 Temp 97.9 97.9 Pulse 55 55 55 Resp 16 B/P (MAP) 170/57 (94) 170/57 170/57 Pulse Ox 95 O2 Delivery Nasal Cannula Room Air O2 Flow Rate 2.0 03/18/17 03/18/17 03/18/17 03/18/17 08:42 09:44 10:22 14:28 Pulse 55 55 54 58 Resp 16 B/P (MAP) 170/57 155/67 155/67 (96) 111/50 Pulse Ox 96 O2 Delivery Nasal Cannula O2 Flow Rate 2.0 03/18/17 15:00 Temp 97.6 97.6 Pulse 56 Resp 16 B/P (MAP) 122/50 (74) Pulse Ox 98 O2 Delivery Room Air Intake and Output 03/17/17 03/17/17 03/18/17 15:00 23:00 07:00 Intake Total 200 ml Output Total 550 ml 600 ml Balance -550 ml -600 ml 200 ml ERNIE SILVER MD Mar 18, 2017 17:03
[2017-03-18] MEDS: cloNIDine HCL 0.2 MG TABLET PO SCH (18:33)
[2017-03-18] MEDS ORDERED: ACETAMINOPHEN/CODEINE 300/30MG TABLET. PO PRN ×2 (18:45)
[2017-03-18 19:13] VITALS: BP 157/69
[2017-03-18] MEDS: ATORVASTATIN CALCIUM 10 MG TABLET. PO SCH (20:49)
[2017-03-18 23:33] VITALS: BP 128/61
[2017-03-19 03:15] VITALS: BP 147/69
[2017-03-19 05:56] LABS: BASO % 1 % (0-3); EOS % 3 % (0-3); HEMATOCRIT 31.2 % (36.0-47.0); LYMPH % 25 % (24-48); MEAN CORPUSCULAR HEMOGLOBIN 26 pg (25-35); MEAN CORPUSCULAR HGB CONC 32 g/dL (31-37); MEAN CORPUSCULAR VOLUME 82 fL (79-100); MONO % 7 % (0-9); NEUT % 65 % (31-73); PLATELET COUNT 229 x10^3/uL (140-400); RED BLOOD COUNT 3.82 x10^6/uL (3.50-5.40); RED CELL DISTRIBUTION WIDTH 15.2 % (11.5-14.5); WHITE BLOOD COUNT 7.8 x10^3/uL (4.0-11.0)
[2017-03-19 06:12] LABS: ALBUMIN 3.3 g/dL (3.4-5.0); CALCIUM 9.4 mg/dL (8.5-10.1); GFR 69.1; PHOSPHORUS 3.7 mg/dL (2.6-4.7); POTASSIUM 4.1 mmol/L (3.5-5.1)
[2017-03-19 07:00] VITALS: BP 147/50
[2017-03-19] MEDS: CLOPIDOGREL BISULFATE 75 MG TABLET PO SCH (08:41)
[2017-03-19] MEDS: FUROSEMIDE 40 MG TABLET. PO SCH (08:41)
[2017-03-19] MEDS: SPIRONOLACTONE 25 MG TABLET PO SCH (08:41)
[2017-03-19] MEDS: CITALOPRAM 20 MG TABLET. PO SCH (08:41)
[2017-03-19] MEDS: APIXABAN 5 MG TABLET. PO SCH (08:41)
[2017-03-19] MEDS: ISOSORBIDE MONONITRATE ER 30 MG TAB.ER.24H PO SCH (08:42)
[2017-03-19] MEDS: cloNIDine HCL 0.1 MG TABLET PO SCH (08:42)
[2017-03-19] MEDS: LISINOPRIL 40 MG TABLET. PO SCH (08:43)
[2017-03-19] MEDS: INSULIN ASPART 300 UNITS/3 ML INSULN.PEN SQ SCH ×3 (08:48→17:00)
[2017-03-19] MEDS: FLUTICASONE 50MCG/NASAL SPRAY 16GM BOTTLE. NS SCH (09:00)
--- NOTE | 2017-03-19 09:57 | PDOC ---
JAIDEN AGARWAL [employer] [facility]ICKER 03/19/17 0957: CARDIO Progress Notes Date and Time Date of Service 03/19/2017 Time of Evaluation 0930 Subjective Subjective: No Chest Pain, No shortness of breath, No Palpitations Vitals Vitals Vital Signs Date Time Temp Pulse Resp B/P (MAP) Pulse Ox O2 Delivery O2 Flow Rate FiO2 03/19/17 08:43 55 147/69 03/19/17 07:33 Room Air 03/19/17 07:00 98.4 16 93 98.4 03/19/17 03:15 2.0 Weight Weight [ ] Input and Output Intake and Output Intake and Output 03/19/17 07:00 Intake Total 1800 ml Output Total 400 ml Balance 1400 ml Intake Oral 1800 ml Output Urine Total 400 ml # Voids 8 Laboratory Labs Laboratory Tests Test 03/18/17 11:29 03/18/17 16:50 03/18/17 20:53 03/19/17 05:30 Glucose (Fingerstick) 183 mg/dL (70-99) 144 mg/dL (70-99) 236 mg/dL (70-99) White Blood Count 7.8 x10^3/uL (4.0-11.0) Red Blood Count 3.82 x10^6/uL (3.50-5.40) Hemoglobin 10.0 g/dL (12.0-15.5) Hematocrit 31.2 % (36.0-47.0) Mean Corpuscular Volume 82 fL (79-100) Mean Corpuscular Hemoglobin 26 pg (25-35) Mean Corpuscular Hemoglobin Concent 32 g/dL (31-37) Red Cell Distribution Width 15.2 % (11.5-14.5) Platelet Count 229 x10^3/uL (140-400) Neutrophils (%) (Auto) 65 % (31-73) Lymphocytes (%) (Auto) 25 % (24-48) Monocytes (%) (Auto) 7 % (0-9) Eosinophils (%) (Auto) 3 % (0-3) Basophils (%) (Auto) 1 % (0-3) Neutrophils # (Auto) 5.1 x10^3uL (1.8-7.7) Lymphocytes # (Auto) 2.0 x10^3/uL (1.0-4.8) Monocytes # (Auto) 0.5 x10^3/uL (0.0-1.1) Eosinophils # (Auto) 0.2 x10^3/uL (0.0-0.7) Basophils # (Auto) 0.0 x10^3/uL (0.0-0.2) Sodium Level 137 mmol/L (136-145) Potassium Level 4.1 mmol/L (3.5-5.1) Chloride Level 101 mmol/L (98-107) Carbon Dioxide Level 29 mmol/L (21-32) Anion Gap 7 (6-14) Blood Urea Nitrogen 14 mg/dL (7-20) Creatinine 1.0 mg/dL (0.6-1.0) Estimated GFR (Cockcroft-Gault) 69.1 Glucose Level 191 mg/dL (70-99) Calcium Level 9.4 mg/dL (8.5-10.1) Phosphorus Level 3.7 mg/dL (2.6-4.7) Magnesium Level 2.0 mg/dL (1.8-2.4) Albumin 3.3 g/dL (3.4-5.0) Test 03/19/17 07:51 Glucose (Fingerstick) 182 mg/dL (70-99) Physical Exam HEENT: Neck Supple W Full Motion Chest: Symmetric LUNGS: Clear to Auscultation Heart: S1S2, RRR (SB 40-50s) Abdomen: Soft N/T Extremities: No Calf Tenderness Neurology: alert, oriented, follow commands Assessment Assessment 1. Essential hypertension; better controlled 2. Diastolic heart failure: compensated 3. 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 Asymptomatic SB; 40-50s mainly in the 40s at rest. Likely due to clonidine use. No pauses Recommendations 1. Meds compared and reviewed. Increase hydralazine to 75 mg bid and decrease clonidine to 0.1 mg po bid (will titrate this off as an outpt) 2. Continue with lasix, lisinopril, imdur 3. Continue with ASA/plavix/eliquis 4. Follow up on 04/16 at 11AM ROSEMARY PIZARRO MD 03/19/17 1064: CARDIO Progress Notes Plan Plan Patient is seen and examined. Agree with above nurse practitioner note. No acute events overnight. Blood pressure better controlled. Medication adjustments of been made in her blood pressure has been well below 140/90 throughout the day. Supportive care. Follow-up in the office. JAIDEN AGARWAL APRN Mar 19, 2017 09:57 ROSEMARY PIZARRO MD Mar 19, 2017 18:54
[2017-03-19 10:54] VITALS: BP 112/43
[2017-03-19] MEDS: ANTI-COAG MONITOR BY PHARMACY. MC PRN (11:17)
--- NOTE | 2017-03-19 11:37 | PDOC ---
SUBJECTIVE ROS F/up for HTN Doign OK Overall OBJECTIVE Vital Signs Vital Signs Date Time Temp Pulse Resp B/P (MAP) Pulse Ox O2 Delivery O2 Flow Rate FiO2 03/19/17 10:54 98.2 68 17 112/43 (66) 93 Room Air 98.2 03/19/17 03:15 2.0 I & 0 Intake and Output 03/19/17 07:00 Intake Total 1800 ml Output Total 400 ml Balance 1400 ml Intake Oral 1800 ml Output Urine Total 400 ml # Voids 8 PHYSICAL EXAM Physical Exam General Appearance: Awake: Alert Oriented x 3 Neck: No JVD or JVP Chest: CTA Shaggy Heart: S1 S2 Abdomen - Soft NTND Extremities - No Edema DIAGNOSIS/ASSESSMENT Assessment & Plan HTN - somewhat better controlled this am Will f/up on Wednesday if still here once w/up as ordered is back Problems: COMMENT/RELEVANT DATA Meds Current Medications Medications (Trade) Dose Ordered Sig/Jose Elias Start Time Stop Time Status Last Admin Dose Admin Acetaminophen/ Codeine Phosphate (Tylenol #3) 1 tab PRN Q4HRS PRN 03/18/17 18:45 03/18/17 20:50 1 TAB Apixaban (Eliquis) 5 mg BID 03/17/17 13:30 03/19/17 08:41 5 MG Aspirin (Ecotrin) 81 mg DAILY 03/17/17 13:30 03/18/17 12:23 DC 03/18/17 08:32 81 MG Atorvastatin Calcium (Lipitor) 10 mg QHS 03/17/17 21:00 03/18/17 20:49 10 MG Citalopram Hydrobromide (CeleXA) 20 mg DAILY 03/17/17 13:30 03/19/17 08:41 20 MG Clonidine HCl (Catapres) 0.1 mg DAILY 03/18/17 09:00 03/19/17 08:42 0.1 MG Clopidogrel Bisulfate (Plavix) 75 mg DAILY 03/17/17 13:30 03/19/17 08:41 75 MG Dextrose (Dextrose 50%-Water Syringe) 12.5 gm PRN Q15MIN PRN 03/17/17 15:00 Fluticasone Propionate (Flonase) 2 spray DAILY 03/17/17 13:30 03/17/17 17:28 2 SPRAY Furosemide (Lasix) 40 mg DAILY 03/18/17 09:00 03/19/17 08:41 40 MG Hydralazine HCl (Apresoline) 50 mg TID 03/17/17 17:30 03/19/17 08:42 50 MG Info (Anti-Coagulation Monitoring By Pharmacy) 1 each PRN DAILY PRN 03/17/17 13:15 03/19/17 11:17 1 EACH Info (Do NOT chart on this entry -- for MONITORING) 1 each PRN DAILY PRN 03/17/17 15:00 03/19/17 14:59 Insulin Aspart (NovoLOG) 0-5 UNITS TIDWMEALS 03/17/17 15:00 03/19/17 08:48 2 UNITS Iohexol (Omnipaque 300 Mg/ml) 90 ml 1X ONCE 03/17/17 14:45 03/17/17 14:46 DC 03/17/17 15:14 90 ML Isosorbide Mononitrate (Imdur) 60 mg DAILY 03/18/17 09:00 03/19/17 08:42 60 MG Lisinopril (Prinivil) 40 mg DAILY 03/18/17 09:00 03/19/17 08:43 40 MG Magnesium Sulfate/ Dextrose 50 ml @ 25 mls/hr PRN DAILY PRN 03/17/17 14:30 Metformin HCl (Glucophage) 1,000 mg DAILYWBKFT 03/20/17 08:00 Spironolactone (Aldactone) 25 mg DAILY 03/17/17 13:30 03/19/17 08:41 25 MG Lab Laboratory Tests Test 03/18/17 16:50 03/18/17 20:53 03/19/17 05:30 03/19/17 07:51 Glucose (Fingerstick) 144 mg/dL (70-99) 236 mg/dL (70-99) 182 mg/dL (70-99) White Blood Count 7.8 x10^3/uL (4.0-11.0) Red Blood Count 3.82 x10^6/uL (3.50-5.40) Hemoglobin 10.0 g/dL (12.0-15.5) Hematocrit 31.2 % (36.0-47.0) Mean Corpuscular Volume 82 fL (79-100) Mean Corpuscular Hemoglobin 26 pg (25-35) Mean Corpuscular Hemoglobin Concent 32 g/dL (31-37) Red Cell Distribution Width 15.2 % (11.5-14.5) Platelet Count 229 x10^3/uL (140-400) Neutrophils (%) (Auto) 65 % (31-73) Lymphocytes (%) (Auto) 25 % (24-48) Monocytes (%) (Auto) 7 % (0-9) Eosinophils (%) (Auto) 3 % (0-3) Basophils (%) (Auto) 1 % (0-3) Neutrophils # (Auto) 5.1 x10^3uL (1.8-7.7) Lymphocytes # (Auto) 2.0 x10^3/uL (1.0-4.8) Monocytes # (Auto) 0.5 x10^3/uL (0.0-1.1) Eosinophils # (Auto) 0.2 x10^3/uL (0.0-0.7) Basophils # (Auto) 0.0 x10^3/uL (0.0-0.2) Sodium Level 137 mmol/L (136-145) Potassium Level 4.1 mmol/L (3.5-5.1) Chloride Level 101 mmol/L (98-107) Carbon Dioxide Level 29 mmol/L (21-32) Anion Gap 7 (6-14) Blood Urea Nitrogen 14 mg/dL (7-20) Creatinine 1.0 mg/dL (0.6-1.0) Estimated GFR (Cockcroft-Gault) 69.1 Glucose Level 191 mg/dL (70-99) Calcium Level 9.4 mg/dL (8.5-10.1) Phosphorus Level 3.7 mg/dL (2.6-4.7) Magnesium Level 2.0 mg/dL (1.8-2.4) Albumin 3.3 g/dL (3.4-5.0) ALYSE LIAO MD Mar 19, 2017 11:37
--- NOTE | 2017-03-19 13:20 | PDOC ---
PROGRESS NOTES Chief Complaint Chief Complaint ~ Hypertensive Urgency ~ CAD ~ DM II ~ Hx of Right SFA dissection/stenosis ~ PVD ~ HLD- statin - thyroid nodule, rec FNBX History of Present Illness History of Present Illness renal following BP medications, cardiology following Continue with Plavix, asa, eliquis accuchecks, metformin Vitals Vitals Vital Signs Date Time Temp Pulse Resp B/P (MAP) Pulse Ox O2 Delivery O2 Flow Rate FiO2 03/19/17 10:54 98.2 68 17 112/43 (66) 93 Room Air 98.2 03/19/17 03:15 2.0 Physical Exam Physical Exam ROS Review of System CONSTITUTIONAL: No fever or chills EYES: No recent changes SKIN: No rash or itching CARDIOVASCULAR: +chest pain RESPIRATORY: No SOB or cough GASTROINTESTINAL: No nausea, vomiting or abdominal pain NEUROLOGICAL: No headaches or weakness ENDOCRINE: No cold or heat intolerance GENITOURINARY: No urgency or frequency of urination MUSCULOSKELETAL: No back pain or joint pain LYMPHATICS: No enlarged lymph nodes PSYCHIATRIC: No anxiety or depression Physical Exam Physical Exam GEN.: No apparent distress. Alert and oriented. HEENT: Head is normocephalic, atraumatic NECK: Supple. THYROID nodule seen on US LUNGS: Clear to auscultation. HEART: RRR, S1, S2 present. Peripheral pulses intact ABDOMEN: Soft, nontender. Positive bowel sounds. EXTREMITIES: Without any cyanosis. NEUROLOGIC: Normal speech, normal tone PSYCHIATRIC: Normal affect, normal mood. SKIN: No ulcerations Sonographic examination of the thyroid was performed and multiple static images were obtained. Findings: The right lobe of the thyroid measures 1.1 x 3.5 x 1.3 cm. There is a isoechoic nodule seen anteriorly in the mid right lobe that measures 5.5 x 6.4 x 4.7 mm. There is a small cyst in the upper pole and measures 3 x 3 x 3 mm. The isthmus appears normal measures 2.8 mm in thickness. The left lobe of the thyroid measures 3.8 x 2.1 x 1.4 cm and contains a heterogeneous nodule that measures 2.0 x 1.9 x 1.4 cm. Impression: The thyroid is normal size however there is a dominant nodule on the left. This could be an autonomously functioning nodule however a neoplasm is possible. Recommend ultrasound-guided fine-needle aspiration. A preliminary copy of this report was faxed the patient floor ([address] [place] [address]) at 1:12 pm on 03-18-17 by Sharlene Parks. Receipt of the faxed preliminary report was confirmed by patient's nurse, Rosie Barnes at 1:25 pm on 03-18-17 DICTATED and SIGNED BY: BIBIANA HU III, MD General: Alert, Oriented X3, Cooperative, No acute distress Heart: Regular rate, Normal S1, Normal S2, No murmurs Lungs: Clear Abdomen: Soft, No tenderness Extremities: No cyanosis, No edema, Normal pulses Skin: No significant lesion Labs LABS Laboratory Tests Test 03/18/17 16:50 03/18/17 20:53 03/19/17 05:30 03/19/17 07:51 Glucose (Fingerstick) 144 mg/dL (70-99) 236 mg/dL (70-99) 182 mg/dL (70-99) White Blood Count 7.8 x10^3/uL (4.0-11.0) Red Blood Count 3.82 x10^6/uL (3.50-5.40) Hemoglobin 10.0 g/dL (12.0-15.5) Hematocrit 31.2 % (36.0-47.0) Mean Corpuscular Volume 82 fL (79-100) Mean Corpuscular Hemoglobin 26 pg (25-35) Mean Corpuscular Hemoglobin Concent 32 g/dL (31-37) Red Cell Distribution Width 15.2 % (11.5-14.5) Platelet Count 229 x10^3/uL (140-400) Neutrophils (%) (Auto) 65 % (31-73) Lymphocytes (%) (Auto) 25 % (24-48) Monocytes (%) (Auto) 7 % (0-9) Eosinophils (%) (Auto) 3 % (0-3) Basophils (%) (Auto) 1 % (0-3) Neutrophils # (Auto) 5.1 x10^3uL (1.8-7.7) Lymphocytes # (Auto) 2.0 x10^3/uL (1.0-4.8) Monocytes # (Auto) 0.5 x10^3/uL (0.0-1.1) Eosinophils # (Auto) 0.2 x10^3/uL (0.0-0.7) Basophils # (Auto) 0.0 x10^3/uL (0.0-0.2) Sodium Level 137 mmol/L (136-145) Potassium Level 4.1 mmol/L (3.5-5.1) Chloride Level 101 mmol/L (98-107) Carbon Dioxide Level 29 mmol/L (21-32) Anion Gap 7 (6-14) Blood Urea Nitrogen 14 mg/dL (7-20) Creatinine 1.0 mg/dL (0.6-1.0) Estimated GFR (Cockcroft-Gault) 69.1 Glucose Level 191 mg/dL (70-99) Calcium Level 9.4 mg/dL (8.5-10.1) Phosphorus Level 3.7 mg/dL (2.6-4.7) Magnesium Level 2.0 mg/dL (1.8-2.4) Albumin 3.3 g/dL (3.4-5.0) Test 03/19/17 11:28 Glucose (Fingerstick) 226 mg/dL (70-99) Review of Systems Review of Systems no nv.d Assessment and Plan Assessmemt and Plan Problems Medical Problems: (1) Accelerated hypertension Status: Acute (2) Acute on chronic systolic (congestive) heart failure Status: Acute Problems: Comment Review of Relevant I have reviewed the following items ilya (where applicable) has been applied. Labs Laboratory Tests Test 03/17/17 16:34 03/17/17 18:00 03/17/17 20:31 03/18/17 00:20 Glucose (Fingerstick) 128 mg/dL (70-99) 200 mg/dL (70-99) Troponin I Quantitative 0.023 ng/mL (0.000-0.055) 0.028 ng/mL (0.000-0.055) Test 03/18/17 05:15 03/18/17 08:07 03/18/17 11:29 03/18/17 16:50 White Blood Count 7.7 x10^3/uL (4.0-11.0) Red Blood Count 3.79 x10^6/uL (3.50-5.40) Hemoglobin 9.9 g/dL (12.0-15.5) Hematocrit 30.9 % (36.0-47.0) Mean Corpuscular Volume 81 fL (79-100) Mean Corpuscular Hemoglobin 26 pg (25-35) Mean Corpuscular Hemoglobin Concent 32 g/dL (31-37) Red Cell Distribution Width 14.9 % (11.5-14.5) Platelet Count 233 x10^3/uL (140-400) Neutrophils (%) (Auto) 59 % (31-73) Lymphocytes (%) (Auto) 31 % (24-48) Monocytes (%) (Auto) 7 % (0-9) Eosinophils (%) (Auto) 2 % (0-3) Basophils (%) (Auto) 1 % (0-3) Neutrophils # (Auto) 4.5 x10^3uL (1.8-7.7) Lymphocytes # (Auto) 2.4 x10^3/uL (1.0-4.8) Monocytes # (Auto) 0.5 x10^3/uL (0.0-1.1) Eosinophils # (Auto) 0.2 x10^3/uL (0.0-0.7) Basophils # (Auto) 0.0 x10^3/uL (0.0-0.2) Sodium Level 140 mmol/L (136-145) Potassium Level 3.7 mmol/L (3.5-5.1) Chloride Level 102 mmol/L (98-107) Carbon Dioxide Level 28 mmol/L (21-32) Anion Gap 10 (6-14) Blood Urea Nitrogen 13 mg/dL (7-20) Creatinine 1.0 mg/dL (0.6-1.0) Estimated GFR (Cockcroft-Gault) 69.1 Glucose Level 184 mg/dL (70-99) Calcium Level 9.4 mg/dL (8.5-10.1) Phosphorus Level 4.3 mg/dL (2.6-4.7) Magnesium Level 2.0 mg/dL (1.8-2.4) Albumin 3.3 g/dL (3.4-5.0) Glucose (Fingerstick) 173 mg/dL (70-99) 183 mg/dL (70-99) 144 mg/dL (70-99) Test 03/18/17 20:53 03/19/17 05:30 03/19/17 07:51 12/8/17 11:28 Glucose (Fingerstick) 236 mg/dL (70-99) 182 mg/dL (70-99) 226 mg/dL (70-99) White Blood Count 7.8 x10^3/uL (4.0-11.0) Red Blood Count 3.82 x10^6/uL (3.50-5.40) Hemoglobin 10.0 g/dL (12.0-15.5) Hematocrit 31.2 % (36.0-47.0) Mean Corpuscular Volume 82 fL (79-100) Mean Corpuscular Hemoglobin 26 pg (25-35) Mean Corpuscular Hemoglobin Concent 32 g/dL (31-37) Red Cell Distribution Width 15.2 % (11.5-14.5) Platelet Count 229 x10^3/uL (140-400) Neutrophils (%) (Auto) 65 % (31-73) Lymphocytes (%) (Auto) 25 % (24-48) Monocytes (%) (Auto) 7 % (0-9) Eosinophils (%) (Auto) 3 % (0-3) Basophils (%) (Auto) 1 % (0-3) Neutrophils # (Auto) 5.1 x10^3uL (1.8-7.7) Lymphocytes # (Auto) 2.0 x10^3/uL (1.0-4.8) Monocytes # (Auto) 0.5 x10^3/uL (0.0-1.1) Eosinophils # (Auto) 0.2 x10^3/uL (0.0-0.7) Basophils # (Auto) 0.0 x10^3/uL (0.0-0.2) Sodium Level 137 mmol/L (136-145) Potassium Level 4.1 mmol/L (3.5-5.1) Chloride Level 101 mmol/L (98-107) Carbon Dioxide Level 29 mmol/L (21-32) Anion Gap 7 (6-14) Blood Urea Nitrogen 14 mg/dL (7-20) Creatinine 1.0 mg/dL (0.6-1.0) Estimated GFR (Cockcroft-Gault) 69.1 Glucose Level 191 mg/dL (70-99) Calcium Level 9.4 mg/dL (8.5-10.1) Phosphorus Level 3.7 mg/dL (2.6-4.7) Magnesium Level 2.0 mg/dL (1.8-2.4) Albumin 3.3 g/dL (3.4-5.0) Laboratory Tests Test 03/18/17 16:50 03/18/17 20:53 03/19/17 05:30 03/19/17 07:51 Glucose (Fingerstick) 144 mg/dL (70-99) 236 mg/dL (70-99) 182 mg/dL (70-99) White Blood Count 7.8 x10^3/uL (4.0-11.0) Red Blood Count 3.82 x10^6/uL (3.50-5.40) Hemoglobin 10.0 g/dL (12.0-15.5) Hematocrit 31.2 % (36.0-47.0) Mean Corpuscular Volume 82 fL (79-100) Mean Corpuscular Hemoglobin 26 pg (25-35) Mean Corpuscular Hemoglobin Concent 32 g/dL (31-37) Red Cell Distribution Width 15.2 % (11.5-14.5) Platelet Count 229 x10^3/uL (140-400) Neutrophils (%) (Auto) 65 % (31-73) Lymphocytes (%) (Auto) 25 % (24-48) Monocytes (%) (Auto) 7 % (0-9) Eosinophils (%) (Auto) 3 % (0-3) Basophils (%) (Auto) 1 % (0-3) Neutrophils # (Auto) 5.1 x10^3uL (1.8-7.7) Lymphocytes # (Auto) 2.0 x10^3/uL (1.0-4.8) Monocytes # (Auto) 0.5 x10^3/uL (0.0-1.1) Eosinophils # (Auto) 0.2 x10^3/uL (0.0-0.7) Basophils # (Auto) 0.0 x10^3/uL (0.0-0.2) Sodium Level 137 mmol/L (136-145) Potassium Level 4.1 mmol/L (3.5-5.1) Chloride Level 101 mmol/L (98-107) Carbon Dioxide Level 29 mmol/L (21-32) Anion Gap 7 (6-14) Blood Urea Nitrogen 14 mg/dL (7-20) Creatinine 1.0 mg/dL (0.6-1.0) Estimated GFR (Cockcroft-Gault) 69.1 Glucose Level 191 mg/dL (70-99) Calcium Level 9.4 mg/dL (8.5-10.1) Phosphorus Level 3.7 mg/dL (2.6-4.7) Magnesium Level 2.0 mg/dL (1.8-2.4) Albumin 3.3 g/dL (3.4-5.0) Test 03/19/17 11:28 Glucose (Fingerstick) 226 mg/dL (70-99) Medications Current Medications Furosemide (Lasix) 40 mg 1X ONCE IVP Last administered on 03/17/17 14:10; Start 03/17/17 at 13:15; Stop 03/17/17 at 13:16; Status DC Apixaban (Eliquis) 5 mg BID PO Last administered on 03/19/17 08:41; Start 03/17/17 at 13:30 Aspirin (Ecotrin) 81 mg DAILY PO Last administered on 03/18/17 08:32; Start 03/17/17 at 13:30; Stop 03/18/17 at 12:23; Status DC Atorvastatin Calcium (Lipitor) 10 mg QHS PO Last administered on 03/18/17 20: 49; Start 03/17/17 at 21:00 Citalopram Hydrobromide (CeleXA) 20 mg DAILY PO Last administered on 03/19/17 08:41; Start 03/17/17 at 13:30 Clonidine HCl (Catapres) 0.1 mg QHS PO ; Start 03/17/17 at 21:00; Stop 03/17/17 at 21:00; Status DC Clopidogrel Bisulfate (Plavix) 75 mg DAILY PO Last administered on 03/19/17 08 :41; Start 03/17/17 at 13:30 Fluticasone Propionate (Flonase) 2 spray DAILY NS Last administered on 17:28; Start 03/17/17 at 13:30 Furosemide (Lasix) 40 mg DAILY PO Last administered on 03/19/17 08:41; Start 03/18/17 at 09:00 Hydralazine HCl (Apresoline) 50 mg BID PO ; Start 03/17/17 at 13:30; Stop at 17:06; Status DC Lisinopril (Prinivil) 40 mg BID PO Last administered on 03/17/17 20:28; Start 03/17/17 at 13:30; Stop 03/18/17 at 08:30; Status DC Metformin HCl (Glucophage) 1,000 mg DAILYWBKFT PO ; Start 03/17/17 at 13:30; Stop 03/17/17 at 14:46; Status DC Spironolactone (Aldactone) 25 mg DAILY PO Last administered on 03/19/17 08:41 ; Start 03/17/17 at 13:30 Info (Anti-Coagulation Monitoring By Pharmacy) 1 each PRN DAILY PRN MC SEE COMMENTS Last administered on 03/19/17 11:17; Start 03/17/17 at 13:15 Magnesium Sulfate/ Dextrose 50 ml @ 25 mls/hr PRN DAILY PRN IV for Mag < 1.7 on am labs; Start 03/17/17 at 14:30 Iohexol (Omnipaque 300 Mg/ml) 90 ml 1X ONCE IV Last administered on 03/17/17 15:14; Start 03/17/17 at 14:45; Stop 03/17/17 at 14:46; Status DC Metformin HCl (Glucophage) 1,000 mg DAILYWBKFT PO ; Start 03/20/17 at 08:00 Info (Do NOT chart on this entry -- for MONITORING) 1 each PRN DAILY PRN MC SEE COMMENTS; Start 03/17/17 at 15:00; Stop 03/19/17 at 14:59 Insulin Aspart (NovoLOG) 0-5 UNITS TIDWMEALS SQ Last administered on 03/19/17 12:04; Start 03/17/17 at 15:00 Dextrose (Dextrose 50%-Water Syringe) 12.5 gm PRN Q15MIN PRN IV SEE COMMENTS; Start 03/17/17 at 15:00 Clonidine HCl (Catapres) 0.2 mg QHS PO Last administered on 03/18/17 18:33; Start 03/17/17 at 21:00 Hydralazine HCl (Apresoline) 50 mg TID PO Last administered on 03/19/17 08:42 ; Start 03/17/17 at 17:30 Clonidine HCl (Catapres) 0.1 mg DAILY PO Last administered on 03/19/17 08:42; Start 03/18/17 at 09:00 Lisinopril (Prinivil) 40 mg DAILY PO Last administered on 03/19/17 08:43; Start 03/18/17 at 09:00 Isosorbide Mononitrate (Imdur) 60 mg DAILY PO Last administered on 03/19/17 08 :42; Start 03/18/17 at 09:00 Acetaminophen/ Codeine Phosphate (Tylenol #3) 0.5 tab PRN Q4HRS PRN PO PAIN; Start 03/18/17 at 18:45 Acetaminophen/ Codeine Phosphate (Tylenol #3) 1 tab PRN Q4HRS PRN PO PAIN Last administered on 03/18/17 20:50; Start 03/18/17 at 18:45 Active Scripts Active Eliquis (Apixaban) 5 Mg Tablet 5 Mg PO BID 30 Days Aspirin Ec (Aspirin) 81 Mg Tablet.dr 1 Tab PO DAILY Clopidogrel (Clopidogrel Bisulfate) 75 Mg Tablet 1 Tab PO DAILY Reported Humalog (Insulin Lispro) 100 Unit/1 Ml Cartridge 100 Unit SQ Clonidine Hcl 0.1 Mg Tablet 1 Tab PO QHS 2 at hs. 1 at am Spironolactone 25 Mg Tablet 1 Tab PO DAILY Fluticasone Propionate Nasal [place] (Fluticasone Propionate) 16 Gm [place].susp 2 [place] NS DAILY Mag64 (Magnesium Chloride) 64 Mg Tablet.er 64 Mg PO Lisinopril 40 Mg Tablet 1 Tab PO BID Metformin Hcl 1,000 Mg Tablet 1,000 Mg PO DAILYWBKFT Atorvastatin Calcium 10 Mg Tablet 1 Tab PO DAILY Furosemide 40 Mg Tablet 1 Tab PO DAILY Citalopram Hbr (Citalopram Hydrobromide) 20 Mg Tablet 1 Tab PO DAILY Hydralazine Hcl 50 Mg Tablet 1 Tab PO BID Vitals/I & O Vital Sign - Last 24 Hours 03/18/17 03/18/17 03/18/17 03/18/17 14:28 15:00 18:33 19:13 Temp 97.6 98.1 97.6 98.1 Pulse 58 56 66 61 Resp 16 16 B/P (MAP) 111/50 122/50 (74) 211/80 157/69 (98) Pulse Ox 98 97 O2 Delivery Room Air Room Air 03/18/17 03/18/17 03/18/17 03/19/17 20:00 20:50 23:33 03:15 Temp 98.0 98.0 98.0 98.0 Pulse 61 50 50 Resp 16 16 B/P (MAP) 157/69 128/61 (83) 147/69 (95) Pulse Ox 96 98 O2 Delivery Room Air Nasal Cannula Nasal Cannula O2 Flow Rate 2.0 2.0 03/19/17 03/19/17 03/19/17 03/19/17 07:00 07:33 08:42 08:42 Temp 98.4 98.4 Pulse 50 55 55 Resp 16 B/P (MAP) 147/50 (82) 147/69 147/69 Pulse Ox 93 O2 Delivery Room Air Room Air 03/19/17 03/19/17 03/19/17 08:42 08:43 10:54 Temp 98.2 98.2 Pulse 55 55 68 Resp 17 B/P (MAP) 147/69 147/69 112/43 (66) Pulse Ox 93 O2 Delivery Room Air Intake and Output 03/18/17 03/18/17 03/19/17 15:00 23:00 07:00 Intake Total 200 ml 1200 ml 400 ml Output Total 400 ml Balance 200 ml 1200 ml 0 ml NICO REAVES MD Mar 19, 2017 13:20
[2017-03-19 14:24] LABS: KAPPA LAMBDA RATIO 0.95 (0.26-1.65)
[2017-03-19 15:00] VITALS: BP 118/47
[2017-03-19] MEDS ORDERED: ISOS60TA2 PO (16:33)
[2017-03-19] MEDS ORDERED: HYDR-2868 PO (16:37)
[2017-03-22 14:17] LABS: DOPAMINE <30 pg/mL (0-48); EPINEPHRINE 161 pg/mL (0-874); NOREPINEPHRINE <15 pg/mL (0-62)
[2017-03-22 16:19] LABS: METANEPH UR 40 ug/L (Undefined); NORMETANEPHRINES UR 50 ug/L (Undefined); TOTAL METANEPHRINES UR 112 ug/24 hr (45-290)
[2017-03-23 08:23] LABS: ALPHA 1 0.3 g/dL (0.0-0.4); ALPHA 2 0.8 g/dL (0.4-1.0); BETA 1.1 g/dL (0.7-1.3); GAMMA 1.3 g/dL (0.4-1.8); M-SPIKE Not Observed g/dL (Not Observed); PROTEIN TOTAL 7.2 g/dL (6.0-8.5)
[2017-03-23 08:23] LABS: ALDOSTERONE 3.2 ng/dL (0.0-30.0)
[2017-03-23 11:21] LABS: GAMMA UR 38.4 % (.); M-SPIKE, % Not Observed % (Not Observed); PROTEIN 24 UR <112 mg/24 hr (30-150); PROTEIN UR <4.0 mg/dL (Not Estab.)
[2017-03-23 14:24] LABS: IMMUNOGLOBULIN A 232 mg/dL (87-352); IMMUNOGLOBULIN G 1193 mg/dL (700-1600); IMMUNOGLOBULIN M 73 mg/dL (26-217)
== END 2017-03-19 18:45 | disposition home or self-care (01) | DRG 291 ==
LOC: ER 10:19 → 2 NORTH 11:50
PROVIDERS: ADMIT Internal Medicine; ATTEND Internal Medicine
DX: I11.0 Hypertensive heart disease with heart failure (principal); I77.77 Dissection of artery of lower extremity; E11.51 Type 2 diabetes mellitus with diabetic peripheral angiopathy without gangrene; I16.0 Hypertensive urgency; I50.43 Acute on chronic combined systolic (congestive) and diastolic (congestive) heart failure; E04.1 Nontoxic single thyroid nodule; E78.5 Hyperlipidemia, unspecified; I25.10 Atherosclerotic heart disease of native coronary artery without angina pectoris; Z82.49 Family history of ischemic heart disease and other diseases of the circulatory system; Z83.3 Family history of diabetes mellitus; Z90.710 Acquired absence of both cervix and uterus; Z90.49 Acquired absence of other specified parts of digestive tract
CPT/HCPCS: 36415; 70450; 71010; 74174; 76536; 76770; 80053; 80069; 80307; 81001; 82088; 82384; 82962; 83520; 83735; 83835; 83880; 84165; 84166; 84244; 84484; 85025; 85610; 86334; 87804; 93005; J1815; J1940; Q9967; 99285-25; G0479

== ENCOUNTER → 2017-05-06 | Outpatient (CLI) | payer MEDICARE | END | disposition home or self-care (01) | LOC: US 08:06 | DX: E04.1 Nontoxic single thyroid nodule (principal); R91.1 Solitary pulmonary nodule | CPT/HCPCS: 60300; 76942 ==

== ENCOUNTER 2019-06-23 11:07 | Emergency (ER) | payer MEDICARE ==
[~2019-06-23] VITALS: Ht 157.5 cm; Wt 94.1 kg
[~2019-06-23 11:07] MED LIST changes: -CITA20TA5 PO; +CITA20TA6 PO; +HYDR-2868 PO; +ISOS60TA2 PO; +LISI-130 PO; -LISI40TA PO; -METF-620 PO; +METF10007 PO; -SPIR25TA3 PO; +SPIR25TA5 PO
[2019-06-23] MEDS ORDERED: dilTIAZem INJ 125 MG in IV NORMAL SALINE 100ML 100 ML IV ONE (11:30)
[2019-06-23] MEDS ORDERED: dilTIAZem IV PUSH 25 MG/5 ML VIAL IVP ONE (11:30)
[2019-06-23 11:42] LABS: BASO # 0.1 x10^3/uL (0.0-0.2); BASO % 1 % (0-3); EOS # 0.2 x10^3/uL (0.0-0.7); EOS % 2 % (0-3); HEMATOCRIT 36.1 % (36.0-47.0); LYMPH # 2.5 x10^3/uL (1.0-4.8); LYMPH % 26 % (24-48); MEAN CORPUSCULAR HEMOGLOBIN 27 pg (25-35); MEAN CORPUSCULAR HGB CONC 33 g/dL (31-37); MEAN CORPUSCULAR VOLUME 81 fL (79-100); MONO # 0.6 x10^3/uL (0.0-1.1); MONO % 6 % (0-9); NEUT # 6.3 x10^3/uL (1.8-7.7); NEUT % 66 % (31-73); PLATELET COUNT 242 x10^3/uL (140-400); RED BLOOD COUNT 4.44 x10^6/uL (3.50-5.40); RED CELL DISTRIBUTION WIDTH 14.1 % (11.5-14.5); WHITE BLOOD COUNT 9.6 x10^3/uL (4.0-11.0)
[2019-06-23 12:02] LABS: CALCIUM 9.4 mg/dL (8.5-10.1); GFR 68.7; POTASSIUM 4.1 mmol/L (3.5-5.1)
--- NOTE | 2019-06-23 12:08 | RAD ---
PORTABLE CHEST 1V History: Dizziness, shortness of breath Comparison: March 17, 2017 Findings: Single view of the chest is submitted. There is atherosclerotic calcification aortic arch, somewhat tortuous thoracic aorta. There is no new lobar consolidation, pleural fluid, or pneumothorax. Cardiac silhouette appears somewhat less prominent size. Impression: 1. No acute radiographic abnormality is identified. Electronically signed by: Leonid Walker MD (06/23/2019 12:06 PM) [id number]
[2019-06-23 12:09] LABS: ALBUMIN 3.5 g/dL (3.4-5.0); ALBUMIN/GLOBULIN RATIO 0.8 (1.0-1.7); MAGNESIUM 1.7 mg/dL (1.8-2.4); TOTAL BILIRUBIN 0.4 mg/dL (0.2-1.0); TOTAL PROTEIN 7.7 g/dL (6.4-8.2)
[2019-06-23] MEDS ORDERED: KETOROLAC 30 MG/ML VIAL. IVP ONE (12:15)
[2019-06-23 13:06] VITALS: BP 166/77
[2019-06-23] MEDS ORDERED: METO50TA6 PO (13:06)
--- NOTE | 2019-06-23 13:07 | PHYS DOC ---
Past Medical History Past Medical History: CHF, Diabetes-Type II, Hypertension Past Surgical History: Cholecystectomy, Hysterectomy, Tonsillectomy, Other Additional Past Surgical Histo: L breast lumpectomy x 2 Smoking Status: Never Smoker Alcohol Use: Occasionally Drug Use: None Adult General Chief Complaint Chief Complaint: SHORTNESS OF BREATH HPI HPI Patient is a 58 year old female with history of hypertension, diabetes mellitus, CHF, atrial fibrillation and RVR on Eliquis and Coreg 6.25 mg twice daily who presents via EMS with complaining of shortness of and palpitation. Patient complaining of sudden onset of shortness of breath and palpitation likely previous episode of atrial fibrillation with RVR and dizziness with change of position. Patient had chest pain, vomiting, fever and chills, recent dehydration or distress condition. EMS reported that patient had atrial fibrillation with RVR at rate of 120s. Review of Systems Review of Systems Constitutional: Denies fever or chills [] Eyes: Denies change in visual acuity, redness, or eye pain [] HENT: Denies nasal congestion or sore throat [] Respiratory: Denies cough, reports shortness of breath [] Cardiovascular: No additional information not addressed in HPI [] GI: Denies abdominal pain, nausea, vomiting, bloody stools or diarrhea [] : Denies dysuria or hematuria [] Musculoskeletal: Denies back pain or joint pain [] Integument: Denies rash or skin lesions [] Neurologic: Denies headache, focal weakness or sensory changes [] Endocrine: Denies polyuria or polydipsia [] All other systems were reviewed and found to be within normal limits, except as documented in this note. Current Medications Current Medications Current Medications Medications (Trade) Dose Ordered Sig/Jose Elias Start Time Stop Time Status Last Admin Dose Admin Diltiazem HCl (Cardizem Iv Push) 20 mg 1X ONCE 06/23/19 11:30 06/23/19 11:31 DC Diltiazem HCl 125 mg/Sodium Chloride 125 ml @ 10 mls/hr 1X ONCE 06/23/19 11:30 06/23/19 13:43 DC Ketorolac Tromethamine (Toradol 30mg Vial) 30 mg 1X ONCE 06/23/19 12:15 06/23/19 12:16 DC 06/23/19 13:00 30 MG Magnesium Oxide (Magnesium Oxide) 400 mg DAILY 06/24/19 09:00 06/23/19 13:43 DC Allergies Allergies Allergies Coded Allergies Type Severity Reaction Last Updated Verified No Known Drug Allergies 03/17/17 No Physical Exam Physical Exam Constitutional: Well developed, well nourished, mild distress, non-toxic appearance. [] HENT: Normocephalic, atraumatic. Eyes: PERRLA, EOMI, conjunctiva normal, no discharge. [] Neck: Normal range of motion, no tenderness, supple, no stridor. [] Cardiovascular: Irregularly irregular rhythm with tachycardia, no murmur [] Lungs & Thorax: Bilateral breath sounds clear to auscultation [] Abdomen: Bowel sounds normal, soft, no tenderness, no masses, no pulsatile masses. [] Skin: Warm, dry, no erythema, no rash. [] Back: No tenderness, no CVA tenderness. [] Extremities: No tenderness, no cyanosis, no clubbing, ROM intact, no edema. [] Neurologic: Alert and oriented X 3, no focal deficits noted. [] Psychologic: Affect normal, judgement normal, mood normal. [] Current Patient Data Vital Signs Vital Signs Date Time Temp Pulse Resp B/P (MAP) Pulse Ox O2 Delivery O2 Flow Rate FiO2 06/23/19 13:06 54 166/77 (106) 99 Room Air 06/23/19 11:09 98.7 20 98.7 Lab Values Laboratory Tests Test 06/23/19 11:25 White Blood Count 9.6 x10^3/uL (4.0-11.0) Red Blood Count 4.44 x10^6/uL (3.50-5.40) Hemoglobin 12.0 g/dL (12.0-15.5) Hematocrit 36.1 % (36.0-47.0) Mean Corpuscular Volume 81 fL (79-100) Mean Corpuscular Hemoglobin 27 pg (25-35) Mean Corpuscular Hemoglobin Concent 33 g/dL (31-37) Red Cell Distribution Width 14.1 % (11.5-14.5) Platelet Count 242 x10^3/uL (140-400) Neutrophils (%) (Auto) 66 % (31-73) Lymphocytes (%) (Auto) 26 % (24-48) Monocytes (%) (Auto) 6 % (0-9) Eosinophils (%) (Auto) 2 % (0-3) Basophils (%) (Auto) 1 % (0-3) Neutrophils # (Auto) 6.3 x10^3/uL (1.8-7.7) Lymphocytes # (Auto) 2.5 x10^3/uL (1.0-4.8) Monocytes # (Auto) 0.6 x10^3/uL (0.0-1.1) Eosinophils # (Auto) 0.2 x10^3/uL (0.0-0.7) Basophils # (Auto) 0.1 x10^3/uL (0.0-0.2) Prothrombin Time 15.0 SEC (11.7-14.0) H Prothrombin Time INR 1.2 (0.8-1.1) H Sodium Level 138 mmol/L (136-145) Potassium Level 4.1 mmol/L (3.5-5.1) Chloride Level 104 mmol/L (98-107) Carbon Dioxide Level 24 mmol/L (21-32) Anion Gap 10 (6-14) Blood Urea Nitrogen 16 mg/dL (7-20) Creatinine 1.0 mg/dL (0.6-1.0) Estimated GFR (Cockcroft-Gault) 68.7 BUN/Creatinine Ratio 16 (6-20) Glucose Level 187 mg/dL (70-99) H Calcium Level 9.4 mg/dL (8.5-10.1) Magnesium Level 1.7 mg/dL (1.8-2.4) L Total Bilirubin 0.4 mg/dL (0.2-1.0) Aspartate Amino Transferase (AST) 20 U/L (15-37) Alanine Aminotransferase (ALT) 27 U/L (14-59) Alkaline Phosphatase 91 U/L (46-116) Creatine Kinase 109 U/L (26-192) Troponin I Quantitative 0.017 ng/mL (0.000-0.055) AK-Akp-Y-Type Natriuretic Peptide 451 pg/mL (0-124) H Total Protein 7.7 g/dL (6.4-8.2) Albumin 3.5 g/dL (3.4-5.0) Albumin/Globulin Ratio 0.8 (1.0-1.7) L Thyroid Stimulating Hormone (TSH) 0.538 uIU/mL (0.358-3.74) Laboratory Tests 06/23/19 11:25 Laboratory Tests 06/23/19 11:25 EKG EKG EKG interpreted by me. EKG at 1112 showed atrial fibrillation with RVR at rate of 135, LVH with repolarization abnormality, no acute ST and T wave elevation. Repeat EKG at 1209 showed normal sinus rhythm at rate of 72, LVH with repolarization abnormality, no acute ST and T wave elevation, normal MT and QT intervals. Radiology/Procedures Radiology/Procedures [facility] [address] [place] [address] IMAGING REPORT Signed PATIENT: MONE ADKINS DACCOUNT: [id number] : 1960 LOCATION: ER AGE: 58 SEX: F EXAM STATUS: PRE ER ORD. PHYSICIAN: GLEN JONES MD REASON: Dizziness and shortness of breath labs 11:30 PROCEDURE: PORTABLE CHEST 1V PORTABLE CHEST 1V History: Dizziness, shortness of breath Comparison: March 17, 2017 Findings: Single view of the chest is submitted. There is atherosclerotic calcification aortic arch, somewhat tortuous thoracic aorta. There is no new lobar consolidation, pleural fluid, or pneumothorax. Cardiac silhouette appears somewhat less prominent size. Impression: 1. No acute radiographic abnormality is identified. Electronically signed by: Bao Walker MD (06/23/2019 12:06 PM) [id number] DICTATED and SIGNED BY: BAO WALKER MD DATE: 06/23/19 120 Course & Med Decision Making Course & Med Decision Making Pertinent Labs and Imaging studies reviewed. (See chart for details) Evaluation of patient inertial 58-year-old female patient with history of atrial fibrillation and RVR brought in by EMS because of episode of atrial fibrillation with RVR. Patient did not have chest pain or hypotension. Before giving bolus of Cardizem patient converted spontaneously to sinus rhythm with rate of 70s with improvement of her shortness of breath and dizziness and palpitation. Labs showed mild hypomagnesemia patient treated with oral magnesium. Cardiology was consulted via cardiology nurse practitioner with suggestion of stop Coreg and start prescribed metoprolol 50 mg twice daily. They arrange for scientific informatics analyst starting today and follow-up with cardiology office. Patient was informed about plan of care and is to follow-up today with cardiology office. I've spoken with the patient and/or caregivers. I've explained the patient's condition, diagnosis and treatment plan based on information available to me at this time. I've answered the patient's and/or caregivers questions and addressed any concerns. The patient and/or caregivers have a good understanding the patient's diagnosis, condition and treatment plan as can be expected at this point. Vital signs have been stabilized. The patient's condition is stable for discharge from the emergency department. The patient will pursue further outpatient evaluation with her primary care provider or other designated consulting physician as outlined in the discharge instructions. Patient and/or caregivers are agreeable to this plan of care and follow-up instructions have been explained in detail. The patient and/or caregivers have received these instructions in written format and expressed understanding of these discharge instructions. The patient and her caregivers are aware that if any significant change in condition or worsening of symptoms should prompt him to immediately return to this of the closest emergency dep artment. If an emergent department is not readily available I would encourage him to call 911. Hetal Disclaimer Dragon Disclaimer This electronic medical record was generated, in whole or in part, using a voice recognition dictation system. Departure Departure Impression: Primary Impression: Atrial fibrillation with RVR Additional Impressions: Hypomagnesemia Headache Disposition: HOME, SELF-CARE (At 1304) Condition: IMPROVED Referrals: SHONDA PHOENIX MD (PCP) Patient Instructions: Atrial Fibrillation, Hypomagnesemia Additional Instructions: Stop taking Carvediol Follow-up with your primary care physician in 3-5 days Return to ER if not getting better Follow-up with cardiology clinic today for picking up Holter monitor Follow-up with your cardiology appointment on August 10 Start new medication Lopressor twice a day Thank you for visiting [facility]. We appreciate you trusting us with your care. If any additional problems come up don't hesitate to return to visit us. Please follow up with your primary care provider so they can plan additional care if needed and know about the problem that you had. If symptoms worsen come back to the Emergency Department. Any concerning symptoms that start such as chest pain, shortness of air, weakness or numbness on one side of the body, running high fevers or any other concerning symptoms return to the ER. Scripts Metoprolol Tartrate (METOPROLOL TARTRATE) 50 Mg Tablet 1 TAB PO BID, #60 TAB Prov: GLEN JONES MD 06/23/19 Problem Qualifiers Additional Impressions: Headache Headache type: unspecified Headache chronicity pattern: unspecified pattern Intractability: not intractable Qualified Codes: R51 - Headache GLEN JONES MD Jun 23, 2019 13:07
--- NOTE | 2019-06-23 14:32 | EKG ---
[facility] [address] [place] [address] Test Date: 2019-06-23 Test Time: 11:12:23 Pat Name: MONE ADKINS Department: Room: Gender: F [employer]: : 1960 Requested By: GLEN JONES Order Number: [id number] Reading MD: Measurements Intervals [place] Rate: 135 P: DE: QRS: 32 QRSD: 86 T: 164 QT: 312 QTc: 473 Interpretive Statements IRREGULAR RHYTHM, NO P-WAVE FOUND LVH WITH REPOLARIZATION ABNORMALITY ABNORMAL ECG RI6.01 No previous ECG available for comparison
[2019-06-24] MEDS ORDERED: MAGNESIUM OXIDE 400 MG TABLET PO SCH (09:00)
--- NOTE | 2019-06-26 15:11 | EKG ---
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
== END 2019-06-23 13:42 | disposition home or self-care (01) ==
LOC: ER 11:07
DX: I48.20 Chronic atrial fibrillation, unspecified (principal); E83.42 Hypomagnesemia; R51 Headache; R07.89 Other chest pain; R11.2 Nausea with vomiting, unspecified; R00.2 Palpitations; I11.0 Hypertensive heart disease with heart failure; I50.9 Heart failure, unspecified; E11.9 Type 2 diabetes mellitus without complications; Z90.49 Acquired absence of other specified parts of digestive tract; Z90.710 Acquired absence of both cervix and uterus; Z98.890 Other specified postprocedural states
CPT/HCPCS: 36415; 71045; 80053; 82550; 83735; 83880; 84443; 84484; 85025; 85610; 93005; 96374; 99285; J1885

== ENCOUNTER → 2019-08-22 | Outpatient (CLI) | payer MEDICARE ==
[~2019-08-22] MED LIST changes: +METO50TA6 PO
--- NOTE | 2019-08-22 13:57 | RAD ---
EXAM: CHEST 2 VIEWS. HISTORY: Shortness of breath, deep venous thrombosis. COMPARISON: 06/23/2019. FINDINGS: Frontal and lateral views of the chest are obtained. There are no confluent infiltrates. There is no pneumothorax or pleural effusion. The heart is mildly enlarged. There are atherosclerotic calcifications of the aorta. IMPRESSION: 1. Mild cardiomegaly. Electronically signed by: Nan Recinos MD (08/22/2019 1:54 PM) [id number]
--- NOTE | 2019-08-22 14:02 | RAD ---
EXAM: PULMONARY PERFUSION IMAGING. HISTORY: Deep venous thrombosis, shortness of breath. COMPARISON: Today's chest radiograph. FINDINGS: 5.4 mCi Tc-99m MAA was administered intravenously. Scintigraphic images of the lungs were obtained in multiple projections. Ventilation images were not obtained. There are no segmental defects. Cardiomegaly is noted. IMPRESSION: 1. No evidence of pulmonary embolism. Electronically signed by: Nan Recinos MD (08/22/2019 1:59 PM) [id number]
--- NOTE | 2019-08-22 14:42 | CARD ---
MR#: [id number] Date of Study: 08/22/2019 Ordering Physician: ROSEMARY PIZARRO, Referring Physician: ROSEMARY PIZARRO, Tech: Carmella Ledesma [facility] APPROVED REPORT EXAM: Two-dimensional and M-mode echocardiogram with Doppler and color Doppler. Other Information Quality : Good INDICATION Atrial Fibrillation 2D DIMENSIONS RVDd3.0 (2.9-3.5cm)Left Atrium(2D)4.5 (1.6-4.0cm) IVSd1.6 (0.7-1.1cm)Aortic Root(2D)2.5 (2.0-3.7cm) LVDd4.4 (3.9-5.9cm)LVOT Diameter2.1 (1.8-2.4cm) PWd1.3 (0.7-1.1cm)LVDs2.3 (2.5-4.0cm) FS (%) 30.0 %SV70.8 ml LVEF(%)60.0 (>50%) Aortic Valve AoV Peak Nnamdi.129.3cm/sAoV VTI28.9cm AO Peak GR.6.7mmHgLVOT Peak Nnamdi.116.9cm/s AO Mean GR.4mmHgAVA (VMAX)3.09cm2 BANDAR (VTI)3.40cm2 Mitral Valve MV E Vaiztjfq51.1cm/sMV DECEL [id number] MV A Obnuwgvj00.6cm/sE/A Ratio1.9 Tricuspid Valve TR P. Vmvengbg309qg/sRAP WEHPRRIC4mgHg TR Peak Gr.55sjDoLUDN39exEg Pulmonary Vein S1 Emlpmgwp82.3cm/sD2 Bwkgwgeo96.1cm/s LEFT VENTRICLE The left ventricle is normal size. There is moderate concentric left ventricular hypertrophy. The lef t ventricular systolic function is normal and the ejection fraction is within normal range. The Eject ion Fraction is 55-60%. There is normal LV segmental wall motion. Transmitral Doppler flow pattern is Grade II-pseudonormal filling dynamics. RIGHT VENTRICLE The right ventricle is normal size. The right ventricular systolic function is normal. ATRIA The left atrium is mildly dilated. The right atrium size is normal. The interatrial septum is intact with no evidence for an atrial septal defect or patent foramen ovale as noted on 2-D or Doppler imagi ng. AORTIC VALVE The aortic valve is mildly to moderately calcified. Doppler and Color Flow revealed no significant ao rtic regurgitation. There is no significant aortic valvular stenosis. There is no aortic valvular veg etation. MITRAL VALVE The mitral valve is calcified but opens well. Mitral annular calcification is mild. There is no evide nce of mitral valve prolapse. There is no mitral valve stenosis. Doppler and Color Flow revealed no m itral valve regurgitation noted. TRICUSPID VALVE The tricuspid valve is normal in structure and function. Doppler and Color Flow revealed trace tricus pid regurgitation. The PA pressure was estimated at 28 mmHg. There is no tricuspid valve stenosis. PULMONIC VALVE The pulmonary valve is normal in structure and function. Doppler and Color Flow revealed mild pulmoni c valvular regurgitation. There is no pulmonic valvular stenosis. GREAT VESSELS The aortic root is normal in size. The ascending aorta is normal in size. The IVC is normal in size a nd collapses >50% with inspiration. PERICARDIAL EFFUSION There is no evidence of significant pericardial effusion. Critical Notification Critical Value: No <Conclusion> The left ventricular systolic function is normal and the ejection fraction is within normal range. Th e Ejection Fraction is 55-60%. There is normal LV segmental wall motion. Doppler and Color Flow revealed mild pulmonic valvular regurgitation. Signed by : Rosemary Pizarro, Electronically Approved : 08/22/2019 14:41:34
== END | disposition home or self-care (01) ==
LOC: NM 12:29
PROVIDERS: ATTEND Internal Medicine Cardiovascular Disease
DX: I08.8 Other rheumatic multiple valve diseases (principal); I25.10 Atherosclerotic heart disease of native coronary artery without angina pectoris; I82.409 Acute embolism and thrombosis of unspecified deep veins of unspecified lower extremity; R07.9 Chest pain, unspecified; I48.0 Paroxysmal atrial fibrillation
CPT/HCPCS: 71046; 78580; 93306; A9540; 96374